=== PATIENT | male | born 2005 | race Caucasian/White ===

== ENCOUNTER → 2023-10-02 11:50 | Outpatient (REF) | payer OTHER, SELFPAY | LOC: HWRAD 11:50 | PROVIDERS: ATTENDING PHYSICIAN Nurse Practitioner | DX: R05.1 Acute cough (principal) | CPT/HCPCS: 71046 ==

== ENCOUNTER 2024-06-22 18:31 | Inpatient (IN) | payer OTHER, SELFPAY ==
[2024-06-22] VITALS (11 sets, daily range): BP systolic 107–130; BP diastolic 74–102; BMI 19.7
--- NOTE | 2024-06-22 11:56 | ED.GENMED ---
History of Present Illness
General
Chief Complaint: Alcohol Problem
Source: patient
Exam Limitations: none
Time Seen by Provider: 06/22/24 11:11
Nursing documentation reviewed up to this point in time: agreed with
History of Present Illness
History of Present Illness:
19 y/o M
says he has been drinking alcohol since high school but definitely heavier in the past year
has been having trouble getting trhough his work day without shakes
usually needs to start drinking around 2 pm
uses vodka and goes through a handle every 2-3 days
lives at home
says his boss sent him home for being 'hung over' yesterday am; spoke with his parents whom they know and clued them in that pt is having issues with alcohol; thus, pt did not drink yesterday as he normally would; he did have some at 11 pm but has
had nausea/vomiting throughout the night, treomrs, sweats, agitation, anxiety, headache
he has never had alcohol withdrawal seizure
no significant abdomianl apin, fever, cp, sob
parents are aware that he drinks but were unaware it was this bad
they are with him but he asked them to step out of the room when he spke with me about how much he has been drinking
Past History
Past History
ED Past Medical History: None
ED Past Surgical History: None
Social History
Tobacco: Vaping
Alcohol: Daily
Drug: Marijuana
Personal: Single
Living: with family
Employment: Employed
Review of Systems
Review of Systems
Allergies reviewed?: Yes
All Other Systems: Not applicable
Phy Exam
Physical Exam
Physical Exam:
GENERAL: Alert , in no apparent distress
EYE: pupils equal and reactive
NECK: Supple
ENT: o/p clr, mmm.
CARDIAC: Regular rate and rhythm .
LUNGS: Clear breath sounds bilaterally, no acute respiratory distress, no wheezes/rales/rhonchi
ABDOMEN: Soft, without focal tenderness, no r/g, no cvat, normal bowel sounds
NEUROLOGICAL: Alert and oriented, no focal neuro deficits
SKIN: Warm and dry, skin intact.
MUSCULOSKELETAL: No edema, well perfused. neg odalys's sign
PSYCH: Normal and appropriate interaction.
Scores
Withdrawal Assessment of Alcohol
Withdrawal Assessment Completed?: Yes
Nausea and Vomiting: Intermittent nausea with dry heaves
Tactile Disturbances: Very mild itching, pins and needles, burning or numbness
Tremor: Severe, even with arms not extended
Auditory Disturbances: Not present
Paroxysmal Sweats: Beads of sweat obvious on forehead
Visual Disturbances: Not present
Anxiety: Moderately anxious, or guarded, so anxiety is inferred
Headache, Fullness in Head: Very mild
Agitation: Moderately fidgety and restless
Orientation and clouding of sensorium: Oriented and can do serial additions
Total CIWA Score: 25
Alcohol Withdrawal Medication Recommendation: Equal to MSAS >11. Lorazepam 2-4mg IV NOW and re-assess q1hr
Course
Orders/Labs/Results
Orders:
Orders
06/22/24 11:57
Lorazepam [Ativan] 1 mg IV NOW STA
06/22/24 11:58
Electrocardiogram (*1) Urgent
Reason for Study: Tachycardia
EKG- Treatment ONCE
0.9% Sodium Chloride 1000 ml [Nss] 1,000 ml IV BOLUS
Thiamine Injection 100 mg IV NOW STA
06/22/24 12:41
FOLic ACID [Folvite] 1 mg 0.9% Sodium Chloride 50 ml [Nss] 50 ml IV NOW
06/22/24 12:47
Alcohol Urgent
Complete Blood Count/With Diff Urgent
Comprehensive Metabolic Panel Urgent
Lipase Urgent
Magnesium Urgent
Comment: ADD ON TO LABS
PTT Urgent
Prothrombin Time Urgent
Venous Blood Gas Urgent
%Oxygen/Room Air: 21
06/22/24 13:30
Add On- LAB Urgent
Tests Added?: magnesium
06/22/24 13:44
US Abdomen Complete/Upper Urgent
Comment:
Reason For Exam: vomiting, alcoholism, elev LFTs
06/22/24 13:45
Magnesium Sulfate 1 G/D5w [Magnesium Sulfate] 1 gm in 100 ml IV NOW
Potassium Chloride Powder [Klor-Con] 20 meq PO NOW STA
06/22/24 13:46
IV Insert/Care/Rem.- Treatment NOW
06/22/24 14:06
Lorazepam [Ativan] 1 mg IV NOW STA
06/22/24 14:10
Potassium Chloride [KCl] 40 meq 0.9% Sodium Chloride 250 ml [Nss] 250 ml IV NOW
06/22/24 15:09
Magnesium Sulfate 1 G/D5w [Magnesium Sulfate] 1 gm in 100 ml IV NOW
Abnormal Lab Results
06/22/24
12:47
RBC 3.68 L 10^6/uL
(4.70-6.10)
Hgb 12.4 L g/dL
(13.0-18.0)
Hct 33.6 L %
(39.0-52.0)
MCH 33.7 H pg
(27.0-31.0)
Absolute Lymphs (auto) 0.3 L 10^3/uL
(1.2-3.4)
Neutrophils % 89.7 H %
(42.2-75.2)
Lymphocytes % 4.1 L %
(20.5-51.1)
APTT 23.1 L Sec
(23.4-35.0)
VBG pH 7.68 H*
(7.32-7.43)
VBG pCO2 28 L mmHg
(35-48)
VBG pO2 140 H mmHg
(30-50)
VBG HCO3 33.0 H mmol/L
(22-27)
Sodium 132 L mmol/L
(135-145)
Potassium 2.9 L mmol/L
(3.5-5.1)
Chloride 87 L mmol/L
(98-107)
Carbon Dioxide 32 H mmol/L
(22-30)
BUN 6 L mg/dl
(9-20)
Creatinine 0.6 L mg/dL
(0.7-1.3)
Glucose 112 H mg/dl
(70-99)
Magnesium 1.0 L mg/dl
(1.6-2.3)
Total Bilirubin 3.0 H mg/dl
(0.2-1.3)
AST 335 H U/L
(17-59)
ALT 94 H U/L
(0-50)
Alkaline Phosphatase 245 H U/L
(38-126)
Total Protein 5.9 L g/dl
(6.3-8.2)
Lipase 1971 H* U/L
(23-300)
06/22/24 12:47
06/22/24 12:47
Vital Signs
Initial and Last Documented VS:
Initial Vital Signs
Temp Pulse Resp BP Pulse Ox
36.6 C 120 20 120/79 98
06/22/24 11:01 06/22/24 11:01 06/22/24 11:01 06/22/24 11:01 06/22/24 11:01
Last Documented Vital Signs
Temp Pulse Resp BP Pulse Ox
36.6 C 92 20 116/87 97
06/22/24 11:01 06/22/24 16:32 06/22/24 16:32 06/22/24 16:32 06/22/24 16:32
MDM/Problems Addressed
Differential Diagnosis Includes:
pancreatitis, alcohol withdrawwal
MDM/Problems Addressed:
vikram doyle
19 y/o M with alcohol abuse
drinking more than what family thought
needing to drink earlier in the day to curb withdrawal symptoms; has never been seen for alcohol abuse/withdrawal before
tried to avoid alochol last night after parents found out how much he was drinking; started vomiting, vomited all night, very shaky
pancreatitis, elevated LFTs (t bili 3), hypokalemia with ekg changes;
tachycardia resolved with ativan;
no h/o seizure
us neg for GB disease;
iv potassium, magnesium ordered
ivf, npo or clears
*Critical Care Note
Total Time (30-74mins, 75-104mins- exclusive of procedures): Not Applicable
ED Attending Note
-
Portions of this chart may have been created with voice recognition software.� Occasional wrong word or��sound alike� substitutions may have occurred due to the inherent limitations of voice recognition software.
Discharge Plan
Departure
Patient Disposition: Admit
Date of Disposition: 06/22/24
Time of Disposition: 15:04
Admit to: IMU
Presentation/result/management discussed w/ accepting MD/DO: Hospitalist
Condition: Fair
Covid-19: Not Applicable
Discharge Problem:
Hypokalemia, Pancreatitis, Alcohol withdrawal
Prescriptions:
No Action
ondansetron HCl [Zofran] 4 mg Tablet
4 mg PO Q8HPRN PRN (Reason: nausea)
pantoprazole [Protonix] 40 mg Tablet,Delayed Release (Dr/Ec)
40 mg PO DAILY
Referrals:
Elvira Ramírez DO [Family Provider] -
Interventions
Interventions:
*General Assessment Last Done: 06/22/24 11:01
ED- Neurological Assessment Last Done: 06/22/24 11:30
ED-Psychological Assessment Last Done: 06/22/24 11:30
Discharge Date and Time
Print Language: NEPALI
[2024-06-22] MEDS: NSS 1000 IV (12:59)
[2024-06-22] MEDS: THIAMINE INJECTION 100 MG IV (13:00)
[2024-06-22] MEDS: ATIVAN 1 MG IV ×2 (13:00→14:48)
[2024-06-22] MEDS: FOLVITE 50.2 MG IV (13:10)
[2024-06-22 13:21] LABS: Venous Blood Gas B.E. 12.7 mmol/L (-4 to +4); Venous Blood Gas pCO2 28 mmHg (35-48); Venous Blood Gas pO2 140 mmHg (30-50)
[2024-06-22 13:27] LABS: Venous Blood Gas pH 7.68 (7.32-7.43)
[2024-06-22 13:36] LABS: APTT 23.1 Sec (23.4-35.0); PT 13.5 Sec (11.4-14.6)
[2024-06-22 13:37] LABS: AST (SGOT) 335 U/L (17-59); Albumin 3.5 g/dl (3.5-5.0); Alcohol None Detected; Alkaline Phosphatase 245 U/L (38-126); Blood Urea Nitrogen 6 mg/dl (9-20); Calcium 8.8 mg/dl (8.4-10.2); Carbon Dioxide 32 mmol/L (22-30); Chloride 87 mmol/L (98-107); Estimated Creatinine Clearance > 125 ml/min; Glucose 112 mg/dl (70-99); Lipase 1971 U/L (23-300); Potassium 2.9 mmol/L (3.5-5.1); Sodium 132 mmol/L (135-145); Total Protein 5.9 g/dl (6.3-8.2); eGFR > 60.00
[2024-06-22 14:23] LABS: % Basophils 0.5 % (0-2); % Immature Granulocytes 0.5 % (0-0.5); % Lymphocytes 4.1 % (20.5-51.1); % Monocytes 5.2 % (1.7-9.3); % Neutrophils 89.7 % (42.2-75.2); Absolute Lymphocytes 0.3 10^3/uL (1.2-3.4); Absolute Monocytes 0.4 10^3/uL (0.1-0.6); Absolute Neutrophils 6.5 10^3/uL (1.4-6.5); Hematocrit 33.6 % (39.0-52.0); Hemoglobin 12.4 g/dL (13.0-18.0); Mean Corp Hgb Conc. 36.9 g/dL (33.0-37.0); Mean Corpuscular Hgb 33.7 pg (27.0-31.0); Mean Corpuscular Volume 91.3 fL (80.0-94.0); Mean Platelet Volume 8.5 fL (7.4-10.4); Nucleated Red Blood Cells % 0 % (-); Platelet Count 226 10^3/uL (130-400); Red Blood Cell Count 3.68 10^6/uL (4.70-6.10); Red Cell Dist. Width 14.1 % (11.5-14.5); White Blood Cell Count 7.3 10^3/uL (4.8-10.8)
[2024-06-22] MEDS: KLOR-CON 20 MEQ PO (14:47)
[2024-06-22] MEDS: KCL 270 MEQ IV (14:51)
[2024-06-22] MEDS: MAGNESIUM SULFATE 100 IV ×2 (14:51→16:31)
[2024-06-22 15:05] LABS: ALT (SGPT) 94 U/L (0-50)
--- NOTE | 2024-06-22 15:17 | HPS.HSE ---
Family Physician
-
Family Physician: Elvira Ramírez
Chief Complaint
-
Nausea/vomiting
History of Present Illness
19M hx depression (reportedly briefly on Lamictal as per patient's mother at bedside, denied hx bipolar) hx heavy ETOH use, vaping, marijuana p/w headache, nausea, vomiting, tremors likely alcohol withdrawal. Daily drinking, hard liquor/vodka.
Never needed treatment for ETOH withdrawal before. Patient's mother also notes patient has been increasingly depressed for the last few weeks. Progressively less functional, poor hygiene. Patient endorses daily drinking to forget his problems.
Denies history suicidal/homicidal ideation. Symptoms significantly improved following Ativan given in ED. Patient able to tolerate oral diet. Tremors remain present on outstretched hands. Labs concerning for ETOH pancreatitis transaminitis
liver injury. Metabolic Alkalosis likely d/t frequent vomiting. Hypokalemia and hypomagnesemia also likely due to vomiting. Abd US concerning for early signs cirrhosis. MELD score 11.
Medical History
Past Medical History
Past Medical History: Reports Other (as above)
Past Surgical History: Reports Other (as above)
Social History
Tobacco: Vaping
Alcohol: Daily
Drug: Marijuana
Personal: Single
Living: With Family
Employment: Employed
Family History
Family History: Not pertinent (reviewed)
Allergies / Home Medications
Allergies reflects when Allergies were last updated in [facility].
Home Medications with original date entered in [facility]
Allergy/Medication List:
Allergies
Allergy/AdvReac Type Severity Reaction Status Date / Time
No Known Allergies Allergy Verified 06/22/24 11:01
Home Medications
ondansetron HCl 4 mg tablet 4 mg PO Q8HPRN PRN nausea 06/22/24
pantoprazole 40 mg tablet,delayed release (Protonix) 40 mg PO DAILY 06/22/24
Review of Systems
-
A 12 point ROS was completed and negative except as noted: Yes
Constitutional: Reports Other (as below)
Physical Exam
Vital Signs
Vital Signs
Temp Pulse Resp BP Pulse Ox
97.9 F 97 16 123/77 96
06/22/24 11:01 06/22/24 15:00 06/22/24 15:00 06/22/24 15:00 06/22/24 15:00
Physical Exam
General: Other (as below)
Laboratory Results
-
06/22/24 12:47
06/22/24 12:47
Laboratory Results
PT 13.5 Sec (11.4-14.6) 06/22/24 12:47
INR 1.00 06/22/24 12:47
APTT 23.1 Sec (23.4-35.0) L 06/22/24 12:47
Total Bilirubin 3.0 mg/dl (0.2-1.3) H 06/22/24 12:47
AST 335 U/L (17-59) H 06/22/24 12:47
ALT 94 U/L (0-50) H 06/22/24 12:47
Alkaline Phosphatase 245 U/L (38-126) H 06/22/24 12:47
Lipase 1971 U/L (23-300) H* 06/22/24 12:47
Impression/Plan
-
ROS
General: Denies fever chills night sweats unexpected weight loss
Neuro: Reports headache shaking/tremors Denies loss of consciousness dizziness vertigo
Psych: denies depression hallucinations confusion manic episodes
Endocrine: Denies polyuria polydipsia polyphagia heat/cold intolerance
HEENT: Denies blindness visual disturbances epistaxis
Pulmonary: denies coughing hemoptysis sneezing sob dyspnea on exertion
Cardiovascular: denies chest pain palpitations leg swelling
Hematology: denies signs symptoms of anemia easy bruising/bleeding
Gastrointestinal: reports nausea, vomiting, alternating constipation diarrhea
Genito-Urinary: denies retention incontinence dysuria
Musculoskeletal: denies joint pain weakness
Dermatology: denies rash laceration bruising
Physical Exam
General: No pallor, cyanosis, or jaundice.
HEENT: Throat clear. PERRLA Normocephalic atraumatic
NECK: Supple. No JVD Carotid Bruits
RESPIRATORY: Lungs clear to auscultation. No crackles wheezes stridor
CVS: S1, S2 sinus tachy. No murmur, rub or gallop.
ABDOMEN: Soft, non-tender. Distended. BS+.
EXTREMITIES: No peripheral cyanosis or edema.
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
Psych: endorses depression, denies SI/HI
IMPRESSION:
19M hx depression (reportedly briefly on Lamictal as per patient's mother at bedside, denied hx bipolar) hx heavy ETOH use, vaping, marijuana p/w headache, nausea, vomiting, tremors likely alcohol withdrawal. Daily drinking, hard liquor/vodka.
Never needed treatment for ETOH withdrawal before. Patient's mother also notes patient has been increasingly depressed for the last few weeks. Progressively less functional, poor hygiene. Patient endorses daily drinking to forget his problems.
Denies history suicidal/homicidal ideation. Symptoms significantly improved following Ativan given in ED. Patient able to tolerate oral diet. Tremors remain present on outstretched hands. Labs concerning for ETOH pancreatitis transaminitis
liver injury. Metabolic Alkalosis likely d/t frequent vomiting. Hypokalemia and hypomagnesemia also likely due to vomiting. Abd US concerning for early signs cirrhosis. MELD score 11.
PLAN:
#ETOH withdrawal
#Likely ETOH induced Pancreatitis and Liver Injury
#US concerning for early signs Cirrhosis
Tele admit
thiamine Folate supplementation
Symptoms already improved, no need for phenobarb taper at this time
ativan prn per MSAS protocol
seizure precautions
Low residue diet for now given patient already tolerating diet
IVF support
trend Lipase
monitor LFTs
GI eval
ETOH cessation counseled
#Metabolic Alkalosis
likely d/t excess vomiting
follow up repeat VBG in AM
#Depression
reportedly briefly on Lamictal in past for Depression
patient and patient's mother Bushra deny hx Bipolar disorder
Denies SI/HI
Psych eval
#Hypokalemia
#Hypomagnesemia
#QT prolongation likely 2/2 electrolyte abn's as above
monitor and replete as necessary
follow up repeat EKG in AM
avoid QT prolonging agents, Ativan prn nausea (hold if administering Ativan as per MSAS protocol)
#Hx Vaping
Tobacco cessation counseled
Nicotine Supplementation
DVT ppx SCD
GI ppx protonix
Full Code
Discussed with patient and patient's mother Bushra at bedside
I spent a total of 80 minutes with the patient or on the floor. More than 50% of this time involved counseling and coordination of care.
[2024-06-23] VITALS (7 sets, daily range): BP systolic 119–139; BP diastolic 83–104; BMI 19.6; BMI 18.7
[2024-06-23] MEDS: LR 1000 IV ×3 (01:42→23:17)
[2024-06-23] MEDS: THIAMINE INJECTION 200 MG IV ×3 (01:44→20:16)
[2024-06-23] MEDS: NICODERM TRANSDERMAL TRANSDERM (01:48)
[2024-06-23] MEDS: ATIVAN 1 MG PO ×5 (05:22→21:40)
[2024-06-23 06:11] LABS: Amphetamines Negative (Negative); Barbiturates Negative (Negative); Benzodiazepines Positive (Negative); Buprenorphine Negative (Negative); Cocaine Negative (Negative); Marijuana Positive (Negative); Methadone Negative (Negative); Methamphetamines Negative (Negative); Opiates Negative (Negative); Phencyclidine Negative (Negative); Tricyclic Antidepressants Negative (Negative)
[2024-06-23 06:20] LABS: Fentanyl, Urine Negative (Negative)
[2024-06-23 06:58] LABS: Venous Blood Gas B.E. 8.2 mmol/L (-4 to +4); Venous Blood Gas HCO3 33.9 mmol/L (22-27); Venous Blood Gas O2 Sat % 94.2 %; Venous Blood Gas pCO2 51 mmHg (35-48); Venous Blood Gas pH 7.43 (7.32-7.43); Venous Blood Gas pO2 64 mmHg (30-50)
[2024-06-23 07:00] LABS: Hemoglobin 11.5 g/dL (13.0-18.0); Mean Corp Hgb Conc. 37.1 g/dL (33.0-37.0); Mean Corpuscular Hgb 34.6 pg (27.0-31.0); Mean Corpuscular Volume 93.4 fL (80.0-94.0); Mean Platelet Volume 8.9 fL (7.4-10.4); Platelet Count 185 10^3/uL (130-400); Red Blood Cell Count 3.32 10^6/uL (4.70-6.10); Red Cell Dist. Width 13.6 % (11.5-14.5); White Blood Cell Count 3.4 10^3/uL (4.8-10.8)
[2024-06-23 07:50] LABS: ALT (SGPT) 81 U/L (0-50); AST (SGOT) 245 U/L (17-59); Albumin 2.9 g/dl (3.5-5.0); Alkaline Phosphatase 198 U/L (38-126); Blood Urea Nitrogen 4 mg/dl (9-20); Calcium 8.5 mg/dl (8.4-10.2); Carbon Dioxide 33 mmol/L (22-30); Chloride 94 mmol/L (98-107); Estimated Creatinine Clearance > 125 ml/min; Glucose 78 mg/dl (70-99); Lipase 1548 U/L (23-300); Magnesium 1.7 mg/dl (1.6-2.3); Phosphorus 2.6 mg/dl (2.5-4.5); Sodium 132 mmol/L (135-145); Total Bilirubin 2.9 mg/dl (0.2-1.3); Total Protein 5.2 g/dl (6.3-8.2); eGFR > 60.00
--- NOTE | 2024-06-23 08:11 | W.PN.HOSP.TC ---
Today's Communication/Plan
-
see a/p
Assessment / Plan
Assessment / Plan
Physical Exam
General: No pallor, cyanosis, or jaundice.
HEENT: Throat clear. PERRLA Normocephalic atraumatic
NECK: Supple. No JVD Carotid Bruits
RESPIRATORY: Lungs clear to auscultation. No crackles wheezes stridor
CVS: S1, S2 sinus tachy. No murmur, rub or gallop.
ABDOMEN: Soft, non-tender. Distended. BS+.
EXTREMITIES: No peripheral cyanosis or edema.
LIBRARY SERIALS ASSISTANT: AOx3 conversant coherent, tremors noted on outstretched hands
Psych: calm cooperative, endorses depression, denies SI/HI
IMPRESSION:
19M hx depression (reportedly briefly on Lamictal as per patient's mother at bedside, denied hx bipolar) hx heavy ETOH use, vaping, marijuana p/w headache, nausea, vomiting, tremors likely alcohol withdrawal. Daily drinking, hard liquor/vodka.
Never needed treatment for ETOH withdrawal before. Patient's mother also notes patient has been increasingly depressed for the last few weeks. Progressively less functional, poor hygiene. Patient endorses daily drinking to forget his problems.
Denies history suicidal/homicidal ideation. Symptoms significantly improved following Ativan given in ED. Patient able to tolerate oral diet. Tremors remain present on outstretched hands. Labs concerning for ETOH pancreatitis transaminitis
liver injury. Metabolic Alkalosis likely d/t frequent vomiting. Hypokalemia and hypomagnesemia also likely due to vomiting. Abd US concerning for early signs cirrhosis. MELD score 11.
PLAN:
#ETOH withdrawal
#Likely ETOH induced Pancreatitis and Liver Injury
#US concerning for early signs Cirrhosis
Tele admit
thiamine Folate supplementation
Symptoms already improved, no need for phenobarb taper at this time
ativan prn per MSAS protocol
Low residue diet for now given patient already tolerating diet
IVF support
trend Lipase
monitor LFTs
GI eval appreciated
ETOH cessation counseled
#Metabolic Alkalosis
likely d/t excess vomiting
follow up repeat VBG in AM noted significant improvement in pH
#Depression
reportedly briefly on Lamictal in past for Depression
patient and patient's mother Bushra deny hx Bipolar disorder
Denies SI/HI
Psych eval appreciated
#Hypokalemia
#Hypomagnesemia
#QT prolongation likely 2/2 electrolyte abn's as above since improved
monitor and replete electrolytes as necessary
minimize QT prolonging agent use as possible
#Hx Vaping
Tobacco cessation counseled
Nicotine Supplementation
DVT ppx SCD
GI ppx protonix
Full Code
Discussed with patient and patient's mother Bushra at bedside
I spent a total of 50 minutes with the patient or on the floor. More than 50% of this time involved counseling and coordination of care.
Anticipated Discharge: 24 - 48 hours
Subjective/Interval History
-
Date of Service: June 23, 2024
Seen and examined at bedside in no acute distress resting comfortably in bed. Overall reports feeling well. Tolerating diet. Tremors outstretched hands remain present.
Objective Data
-
Labs:
Laboratory Results
06/23/24
06:36
WBC 3.4 L
Hgb 11.5 L
Hct 31.0 L
Plt Count 185
Sodium 132 L
Potassium 3.0 L
Chloride 94 L
Carbon Dioxide 33 H
BUN 4 L
Creatinine 0.6 L
Glucose 78
Calcium 8.5
Total Bilirubin 2.9 H
AST 245 H
ALT 81 H
Alkaline Phosphatase 198 H
Vital Signs:
Vital Signs
Temp Pulse Resp BP Pulse Ox
98.7 F 83 15 136/89 98
06/23/24 02:54 06/23/24 02:54 06/23/24 02:54 06/23/24 04:00 06/23/24 02:54
I&O
06/22/24 06/23/24 06/24/24
06:59 06:59 06:59
Intake Total 700 / 700
Balance 700 / 700
[2024-06-23] MEDS: NICODERM TRANSDERMAL 21 MG TRANSDERM (08:48)
[2024-06-23] MEDS: PROTONIX 40 MG PO (08:48)
[2024-06-23] MEDS: FOLVITE 1 MG PO (08:48)
--- NOTE | 2024-06-23 11:41 | CM ---
Addendum entered by Fadumo Prabhakar 06/24/24 08:22:
[facility]
Phone #: [phone]
Fax #: [phone]
Original Note:
Patient seen at bedside
IA completed
Psych consulted
CM consult completed-substance abuse/dispo planning
Patient lives with his parents in a multi story home
Independent, denies DME, Denies VN/Rehab
[facility] information given to patient
Marivel from [facility] states she met the patient/parents yesterday
Receptive to inpatient - Marivel states patient set up with [facility] in [place], [place]
PCP: Elivra Ramírez
Pharmacy: [facility]
PLAN: [facility] when stable, [facility] is following
[2024-06-23] MEDS: MAGNESIUM SULFATE 50 IV (12:26)
[2024-06-23] MEDS: KCL 40 MEQ PO (12:26)
--- NOTE | 2024-06-23 12:44 | CS.PSYCHR ---
Consult Summary - Psychiatry
-
Pt is 19 yo male with hx of depression, admitted 06/22 for alcohol withdrawal symptoms, pancreatitis and liver injury, drinking vodka daily. BAL negative on admission, UDS +MJ. Pt seen with father present. Pt states he has had some depression,
feeling like his life is not progressing, since he dropped out of college, is working the same job he's had for several years. He states he feels concerned about his future. He c/o decreased energy; per father pt has chronic/life-long issues with
sleep and a very restricted diet. Pt alert, sitting up eating scrambled eggs, answering questions. Pt slightly tremulous; no agitation or signs of psychosis.
Psych Hx: saw a psychiatrist for depression about 1 year ago, had a therapist for a few years during the pandemic. C/o not liking Wellbutrin, felt like a 'zombie'; was on Lamictal- did not feel any benefit
Denies hx of inpatient tx
SH: single, living with parents, employed.
Subst Use: MJ, vapes, daily alcohol
MSE: alert, calm, cooperative. Speech coherent, thought clear. Mood dysphoric, outlook negative. Denies SI. No signs of psychosis. Insight limited to fair
Imp: Alcohol Use d/o, severe. Cannabis Use
Unspecified depression
Rec: continue current management. Consider antidepressant when more stable/out of the high- risk period for alcohol withdrawal sx
Encourage alcohol rehab. Outpatient therapy and med mgt when medically cleared/upon return home
Will follow
--- NOTE | 2024-06-23 13:30 | CON.GI ---
Addendum entered and electronically signed by Ashley Contreras MD 06/23/24 17:17:
I saw and examined the patient.
The MANAGER IMAGE or PA's note was reviewed and I agree with the note.
Comment:
This patient is a 19-year-old man with a history of alcohol abuse since eighth grade. He was admitted with shakiness, nausea and vomiting. His symptoms have improved. Labs and imaging done on admission show possible early cirrhosis, elevated
lipase and elevated AST and bilirubin. In the room he does not have abdominal pain and is eating a soft pretzel. He does not have any abdominal pain now.
abd: soft, nontender
oriented
impression
alcohol abuse
? early cirrhosis
abnl liver tests
plan:
alcohol abstinence
follow lfts,INR
w/u for underlying liver disease (in case it isn't all alcohol)
monitor for withdrawal
d/w mother at bedside as well
Original Note:
Consultation
-
Date/Time Consultation Requested: 06/22/24 1850-
Date/Time Consultation Performed: 06/23/24 1330
Requesting Provider: Jose Alfredo escamilla MD
Performing Provider: JOSSELINE Stringer, Ashley Contreras MD
Reason for Consultation: ETOH abuse, increased LFT's, lipase, US concern for cirrhosis
Medical History
Chief Complaint / HPI
Chief Complaint: shakiness, abdominal pain,nausea, vomiting
History of Present Illness:
Pt is a 19yo with hx anxiety/depression and ETOH abuse. He admits to ETOH use since 8th grade. In review with amount of ETOH consumed increased over time to admitted drinking 1 handle of vodka every other day prior to admission. He admits to
drinking early in day to avoid withdrawal symptoms. On admission he is noted with He denies hx liver issues in past. There is some family with hx ETOH issue but denies any family member with cirrhosis or liver transplant in past. Na 132, K 2.9,
bili 3, AST 335, ALT 94, alk pos 245 and lipase 1971. Platelets 226, albumin 3.5 and INR 1. US completed with liver normal size mild diffuse heterogeneous hepatic echotexture, suspicious for early change of cirrhosis. No suspicious focal hepatic
lesions identified. No definitive nodularity of the hepatic capsular contour.
In review with patient he complaints of continued shakiness. He also has + GERD on Protonix , + nausea/vomiting last week. He did have some abdominal pain last week that has improved. He denies diarrhea, constipation, hematemesis, or rectal
bleeding. No hx EGD or colonoscopy in past. No hx hepatitis, tattoos, or IVDA. No supplement use.
Past Medical History
Past Medical History: Psychiatric (anxiety/depression) and Other (ETOH abuse, brown-schlatter disease )
Past Surgical History: Orthopedic (knee surgery )
Social History
Tobacco: Vaping
Alcohol: Daily (1 handle every other day)
Drug: None
Living: With Family
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
Family History
Family History: Other (no family hx liver issues )
Allergies / Home Medications
Allergy/AdvReac Type Severity Reaction Status Date / Time
No Known Allergies Allergy Verified 06/22/24 11:01
�Medication �Instructions �Recorded
ondansetron HCl 4 mg tablet 4 mg PO Q8HPRN PRN nausea 06/22/24
pantoprazole 40 mg tablet,delayed 40 mg PO DAILY Gastrointestinal 06/22/24
release (Protonix) Issue
Review of Systems
-
History Source: Patient and Family
Constitutional: Reports No Symptoms
EENT: Reports No Symptoms
Respiratory: Reports No Symptoms
Cardiac: Reports No Symptoms
Abdomen/GI: Reports Abdominal Pain (last week ), Nausea, Vomiting and Other (decreased appetite )
: Reports No Symptoms
Musculoskeletal: Reports No Symptoms
Skin: Reports No Symptoms
Neurological: Reports Weakness
Endocrine: Reports No Symptoms
Hematologic/Lymphatic: Reports No Symptoms
Vital Signs
Temp Pulse Resp BP Pulse Ox
98.5 F 93 18 130/94 95
06/23/24 11:24 06/23/24 11:24 06/23/24 11:24 06/23/24 11:24 06/23/24 11:24
Physical Exam
Exam
General: Well Developed, Well Nourished and No Apparent Distress
HEENT: Normocephalic and Anicteric
Respiratory: Clear
Cardiac: Regular Rhythm
GI: Soft, Non Tender and Distended (mild )
Musculoskeletal: No Clubbing and No Cyanosis
Skin: Warm and Dry
Neuro: Awake, Alert and AO x 3
Psych: Calm
Results
WBC 3.4 10^3/uL (4.8-10.8) L 06/23/24 06:36
Hgb 11.5 g/dL (13.0-18.0) L 06/23/24 06:36
Hct 31.0 % (39.0-52.0) L 06/23/24 06:36
MCV 93.4 fL (80.0-94.0) 06/23/24 06:36
Plt Count 185 10^3/uL (130-400) 06/23/24 06:36
Absolute Neuts (auto) 6.5 10^3/uL (1.4-6.5) 06/22/24 12:47
PT 13.5 Sec (11.4-14.6) 06/22/24 12:47
INR 1.00 06/22/24 12:47
APTT 23.1 Sec (23.4-35.0) L 06/22/24 12:47
Sodium 132 mmol/L (135-145) L 06/23/24 06:36
Potassium 3.0 mmol/L (3.5-5.1) L 06/23/24 06:36
Chloride 94 mmol/L (98-107) L 06/23/24 06:36
Carbon Dioxide 33 mmol/L (22-30) H 06/23/24 06:36
BUN 4 mg/dl (9-20) L 06/23/24 06:36
Creatinine 0.6 mg/dL (0.7-1.3) L 06/23/24 06:36
Calcium 8.5 mg/dl (8.4-10.2) 06/23/24 06:36
Total Bilirubin 2.9 mg/dl (0.2-1.3) H 06/23/24 06:36
AST 245 U/L (17-59) H 06/23/24 06:36
ALT 81 U/L (0-50) H 06/23/24 06:36
Alkaline Phosphatase 198 U/L (38-126) H 06/23/24 06:36
Lipase 1548 U/L (23-300) H* 06/23/24 06:36
Diagnostic Image Results:
06/23 US abdomen
1. Diffuse mildly heterogeneous hepatic echotexture, suspicious for early change of cirrhosis. No suspicious focal hepatic lesions identified. No definitive nodularity of the hepatic capsular contour.
2. No acute intra-abdominal process identified sonographically
Prior GI Procedures:
EGD: none
Colonoscopy: none
Assessment / Plan
-
Pt is a 19yo with hx anxiety/depression and ETOH abuse. He admits to ETOH use since 8th grade. In review with amount of ETOH consumed increased over time to admitted drinking 1 handle of vodka every other day prior to admission. He admits to
drinking early in day to avoid withdrawal symptoms. On admission he is noted with He denies hx liver issues in past. There is some family with hx ETOH issue but denies any family member with cirrhosis or liver transplant in past. Na 132, K 2.9,
bili 3, AST 335, ALT 94, alk pos 245 and lipase 1971. Platelets 226, albumin 3.5 and INR 1. US completed with liver normal size mild diffuse heterogeneous hepatic echotexture, suspicious for early change of cirrhosis. No suspicious focal
hepatic lesions identified. No definitive nodularity of the hepatic capsular contour.
-ETOH abuse with withdrawal
-US with concern for early cirrhosis
-elevated LFT's
-elevated lipase
-hyponatremia
-hypokalemia
-GERD with PPI use
other med problems:
anxiety/depression
-brown-Schlatter disease
PLAN:
etiology of symptoms with concern for ETOH abuse and withdrawal with concern for early cirrhosis
pt with some abdominal pain/nausea/vomiting last week concern for ETOH hepatitis/pancreatis
will add hepatitis, NIGEL, AMA, iron studies, A1AT, ceruloplasmin to exclude any other etiology for US finding
lab trend improved
DF low 5.3 no role for steroids
if symptoms not improving consider CT to further eval pancreas as not well visualized on US
STRESSED complete ETOH abstinence, avoid liver toxic medication and supplement
good nutrition and add supplement daily
monitor for withdrawal- cont rx per medical team
long discussion with patient and family concern for possible cirrhosis at young age all questions answered
cont PPI
cont thiamine and folate
correct electrolytes per medical team
OP follow up 3-4 weeks after discharge to ensure improved
-
-
Thank you for consultation and allowing me to participate in the patient's care. Please call the business continuity strategy director GI physician during the after hours with any questions or concerns.
[2024-06-23 14:59] LABS: Urine Albumin Negative (Neg - Trace); Urine Bilirubin Negative (Negative); Urine Character Clear (Clear); Urine Color Yellow; Urine Glucose Negative (Negative); Urine Ketone Negative (Negative); Urine Leukocyte Negative (Negative); Urine Nitrite Negative (Negative); Urine Occult Blood Negative (Negative); Urine Urobilinogen Negative (Neg - 1+)
[2024-06-23] MEDS: ATIVAN 1 MG IV ×2 (20:17→23:17)
--- NOTE | 2024-06-23 22:00 | PTCARENOTE ---
Patient becoming increasingly restless, tremulous, agitated, and slightly confused as to place and time. MSAS score continues to increase. Patient now c/o 'hearing people talking about him' and attempting to remove his IV, stating that 'there is
metal stuck in his arm.' Provider notified. Pt. to be transferred to IMU per order. Report called to Tonio JEAN and patient to be moved to room 3341.
--- NOTE | 2024-06-23 23:00 | PTCARENOTE ---
Received pt from the [facility] to rm [id number]. Pt restless, disoriented to time, tremulous, afebrile but able to be redirected. HR initially 80s. MSAS score initially 9.
[2024-06-23] MEDS: PHENOBARBITAL 104 MG IV (23:22)
[2024-06-24] VITALS (31 sets, daily range): BP systolic 106–151; BP diastolic 89–115; PULSE 48–64; BMI 18.8
[2024-06-24] MEDS: ATIVAN 2 MG IV ×4 (00:03→01:24)
--- NOTE | 2024-06-24 00:29 | W.PN.UPDATE ---
Update Note
Progress Note Update
Patient received as a transfer from [facility] due to increased withdrawal symptoms. Ativan given as per protocol. Phenobarbital taper ordered. Patient w/increasing withdrawal symptoms, Patient is still trying to get OOB, hallucinating, trying to bite
tele leads, IV lines. Ordered and placed in 4 point soft limb restraints and face mask. Given additional dose of Ativan 2 mg IV, with no reduction of symptoms. Discussed with ICU SPICE GRINDER, will transfer to ICU and start Dexmedetomidine gtt to help
w/withdrawal symptoms.
--- NOTE | 2024-06-24 00:33 | PTCARENOTE ---
Pt more restless, hallucinating, trying to get oob, pulling at leads and IV. HR 150s-160s. MSAS 12. Restraints placed on pt. Phenobarb bolus ordered and completed. IV ativan given x 2 with little effect. 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
bedside. Pt transferred to ICU.
[2024-06-24] MEDS: VERSED 5 MG IV ×2 (00:36→00:54)
[2024-06-24] MEDS: PRECEDEX 100 IV ×2 (00:36→08:05)
[2024-06-24] MEDS: NSS (PRESERVATIVE FREE) 10 ML IV (00:48)
--- NOTE | 2024-06-24 01:00 | PTCARENOTE ---
rec`d pt from IMU extremely restless, several prns given. 4 point restraints. pt incontinent of urine. safe environment maintained. call heath in reach.
[2024-06-24] MEDS: NSS (PRESERVATIVE FREE) 1 ML IV (01:26)
[2024-06-24] MEDS: VALIUM INJECTION 10 MG IV (01:43)
--- NOTE | 2024-06-24 02:21 | W.PN.UPDATE ---
Update Note
Progress Note Update
RN reported patient MSAS 8, 7. RN reports he is restless and starting to act confused, picking at his IV, thinking there's 'something inside his body.' Patient seen and evaluated. resting in bed at present, but noted to be mild to moderate tremulus,
picking on IV site, trying to pull it out stating ' someone placed metal in there'. When RN tried to correct him, became little agitated using fowl language, and became defensive. Reoriented.
Half an hour later, RN reported MSAS 13, is having auditory hallucinations, paranoid, thinks people are talking about him....and that we are 'putting more metal in his arm' will transfer patient to IMU.
[2024-06-24 03:51] LABS: Hematocrit 30.6 % (39.0-52.0); Mean Corp Hgb Conc. 35.9 g/dL (33.0-37.0); Mean Corpuscular Hgb 33.5 pg (27.0-31.0); Mean Corpuscular Volume 93.3 fL (80.0-94.0); Platelet Count 159 10^3/uL (130-400); Red Blood Cell Count 3.28 10^6/uL (4.70-6.10); Red Cell Dist. Width 13.4 % (11.5-14.5); White Blood Cell Count 3.6 10^3/uL (4.8-10.8)
[2024-06-24 04:18] LABS: ALT (SGPT) 79 U/L (0-50); AST (SGOT) 161 U/L (17-59); Albumin 2.9 g/dl (3.5-5.0); Alkaline Phosphatase 184 U/L (38-126); Blood Urea Nitrogen 3 mg/dl (9-20); Calcium 8.5 mg/dl (8.4-10.2); Carbon Dioxide 28 mmol/L (22-30); Chloride 103 mmol/L (98-107); Estimated Creatinine Clearance > 125 ml/min; Glucose 102 mg/dl (70-99); Iron 91 ug/dl (49-181); Lipase 994 U/L (23-300); Potassium 2.9 mmol/L (3.5-5.1); Sodium 137 mmol/L (135-145); Total Bilirubin 2.2 mg/dl (0.2-1.3); Total Protein 5.2 g/dl (6.3-8.2); eGFR > 60.00
[2024-06-24 04:27] LABS: Percent Saturation 54 % (20-50); Total Iron Binding Capacity 166 ug/dl (261-462)
[2024-06-24] MEDS: KCL 270 MEQ IV (04:55)
[2024-06-24] MEDS: LR 1000 IV ×3 (05:09→19:49)
--- NOTE | 2024-06-24 07:21 | CON.INTV ---
Consultation
Consultation Request
Date/Time Consultation Requested: 06/24/24-7 a.m.
Date/Time Consultation Performed: 06/24/24-7:30 AM
Requesting Provider: hospitalist
Performing Provider: Dr. Caban
Reason for Consultation: alcohol withdrawal/critical care management
Medical History
-
Chief Complaint: delirium/alcohol withdrawal
History of Present Illness:
19-year-old vaping male with alcohol use disorder and marijuana use presented with headache, nausea, vomiting, tremors and alcohol withdrawal-river pilot consulted for Precedex, alcohol withdrawal, critical care management 06/24/24. She continues
to be quite confused. He is delusional as well. He has mild tremors and mild tachycardia. He offers no complaints of chest pain, shortness of breath, abdominal pain, nausea, emesis at this time
Past Medical History
Past Medical History: None (Alcohol use disorder. Marijuana use. Vapping. Depression.)
Social History
Tobacco: Vaping
Alcohol: Daily ( A handle of vodka every other day)
Drug: Marijuana
Personal: Single
Living: With Family
Occupational Exposures: no known asbestos exposure
Environmental Exposures: no known tuberculosis exposure
Family History
Family History: Other ( depression)
Allergies / Home Medications
Allergies
Allergy/AdvReac Type Severity Reaction Status Date / Time
No Known Allergies Allergy Verified 06/22/24 11:01
Home Medications
�Medication �Instructions �Recorded �Confirmed �Last Taken �Type
ondansetron HCl 4 mg tablet 4 mg PO Q8HPRN PRN nausea 06/22/24 06/22/24 Unknown History
pantoprazole 40 mg tablet,delayed 40 mg PO DAILY Gastrointestinal 06/22/24 06/22/24 Unknown History
release (Protonix) Issue
Review of Systems
-
Unable to Obtain full review of systems at this time due to: Other ( per HPI)
Vitals / Labs / Diagnostic Testing
Vital Signs
Temp Pulse Resp BP Pulse Ox
98.4 F 60 18 137/98 99
06/24/24 03:00 06/24/24 06:15 06/24/24 06:15 06/24/24 06:00 06/24/24 06:15
Lab Data
06/24/24 03:27
06/24/24 03:27
Diagnostic Testing:
Physical Exam
-
Exam:
well-nourished and well-developed in no apparent distress
HEENT-atraumatic, normocephalic
Neck-supple, no JVD, no bruit
Heart-regular rate and rhythm-no murmurs, rubs or gallops
Chest-clear to auscultation, no wheezes, crackles
Back-no tenderness
Abdomen-soft, nontender, nondistended, no hepatosplenomegaly
Extremities-no cyanosis, clubbing, edema and good peripheral pulses
Integument-intact, no rashes, lesions or ecchymosis
Neurology-alert and oriented, nonfocal motor and sensory exam
Assessment
-
19-year-old vaping male with alcohol use disorder and marijuana use presented with headache, nausea, vomiting, tremors and alcohol withdrawal-river pilot consulted for Precedex, alcohol withdrawal, critical care management 06/24/24.
Alcohol use disorder with alcohol withdrawal
Elevated liver functions
Pancreatitis-elevated lipase
Metabolic alkalosis
Hypokalemia
Hypomagnesemia
Leukopenia
Fxqhem-dupvsgauis-vhsflrlemr 11.0
Conditions present prior to admission:
Alcohol use disorder.
Marijuana use.
Vapping.
Depression.
Plan
Patient will be admitted to medical intensive care unit with alcohol withdrawal syndrome
Supplemental oxygen as needed
Aspiration precautions
Incentive spirometry
Head of bed elevation
Follow MSAS
Alcohol withdrawal treatment protocol will continue
Supplements glucose and thiamine to prevent Wernicke's encephalopathy
Supplement multivitamins and folate
Replete deficiencies and glucose, potassium, magnesium and phosphorus
Benzodiazepines as needed-diazepam or lorazepam
Precedex drip as needed
If refractory DTs then would consider Phenobarbital 130-260 mg IV every 20 minutes
Alcohol cessation counseling
Consider psychiatry evaluation
Consider rehabilitation
DVT prophylaxis
GI prophylaxis
Early nutrition
Early mobilization
Updated mother on multidisciplinary rounds 06/24/24
Critical care statement: A total of 55 minutes of critical care time was provided for this patient today. This includes management of unstable vital signs, treatment for and prevention of alcohol withdrawal, evaluation of the patient at bedside,
reviewing the patient's pertinent medical records including radiographs, microbiology, laboratory evaluations, and discussion with primary team, consultants, pharmacy, nutrition, physical therapy, case management, charge nurse, critical care
nursing, and respiratory therapy.
Diagnostic data:
Chest x-ray 10/02/2023-NAD
Abdominal ultrasound 06/22/24-diffuse mild heterogeneous hepatic echotexture suspicious for early changes of cirrhosis
Data Reviewed
-
EKG: Report reviewed by me
Radiology: Report reviewed by me
Ultrasound: Report reviewed by me
Medical Tests (Nuc Med, Echo etc): Report reviewed by me
Labs: Labs reviewed by me
Old Records: Reviewed
Critical Care Time (in minutes): 55
--- NOTE | 2024-06-24 07:29 | W.PN.HOSP.TC ---
Addendum entered and electronically signed by Robert Ruiz MD 06/24/24 14:25:
BMI 18.8 within normal range
Original Note:
Today's Communication/Plan
-
replete Potassium
wean precedex gtt as tolerated
start Librium taper
check ammonia level
cont ativan prn per MSAS protocol
Assessment / Plan
Assessment / Plan
Physical Exam
General: No pallor, cyanosis, or jaundice.
HEENT: Throat clear. PERRLA Normocephalic atraumatic
NECK: Supple. No JVD Carotid Bruits
RESPIRATORY: Lungs clear to auscultation. No crackles wheezes stridor
CVS: S1, S2 sinus tachy. No murmur, rub or gallop.
ABDOMEN: Soft, non-tender. Distended. BS+.
EXTREMITIES: No peripheral cyanosis or edema.
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
Psych: sedated
IMPRESSION:
19M hx depression (reportedly briefly on Lamictal as per patient's mother at bedside, denied hx bipolar) hx heavy ETOH use, vaping, marijuana p/w headache, nausea, vomiting, tremors likely alcohol withdrawal. Daily drinking, hard liquor/vodka.
Never needed treatment for ETOH withdrawal before. Patient's mother also notes patient has been increasingly depressed for the last few weeks. Progressively less functional, poor hygiene. Patient endorses daily drinking to forget his problems.
Denies history suicidal/homicidal ideation. Symptoms significantly improved following Ativan given in ED. Patient able to tolerate oral diet. Tremors remain present on outstretched hands. Labs concerning for ETOH pancreatitis transaminitis
liver injury. Metabolic Alkalosis likely d/t frequent vomiting. Hypokalemia and hypomagnesemia also likely due to vomiting. Abd US concerning for early signs cirrhosis. MELD score 11.
PLAN:
#ETOH withdrawal, Delirium Tremens
#Likely ETOH induced Pancreatitis and Liver Injury
#US concerning for early signs Cirrhosis
Tele admit
thiamine Folate supplementation
on admission Symptoms already improved, there was no need for phenobarb taper at the time
However, over 2nd night stay, patient developed significant confusion/hallucination/agitation concerning for delirium tremens, despite ativan as per MSAS protocol, necessitating transfer to ICU for precedex gtt
Patient also received Valium overnight in ICU with noted subsequent improvement in symptoms
ativan prn per MSAS protocol
start Librium Taper
wean precedex gtt as tolerated
Low residue diet
IVF support
Lipase trended down, Pancreatitis resolved
monitor LFTs
Check Ammonia level, low suspicion hepatic encephalopathy at this time however, patient family endorses pt having regular bowel movements since admission, also no asterixis noted on physical exam
GI eval appreciated
ETOH cessation counseled
#Metabolic Alkalosis resolved
likely d/t excess vomiting
follow up repeat VBG in AM noted significant improvement in pH
#Depression
reportedly briefly on Lamictal in past for Depression
patient and patient's mother Bushra deny hx Bipolar disorder
Denies SI/HI
Psych eval appreciated
#Hypokalemia
#Hypomagnesemia
#QT prolongation likely 2/2 electrolyte abn's as above since improved
monitor and replete electrolytes as necessary
minimize QT prolonging agent use as possible
#Hx Vaping
Tobacco cessation counseled
Nicotine Supplementation
DVT ppx SCD
GI ppx protonix
Full Code
Discussed with patient and patient's mother Bushra at bedside
Total Critical Care Time__50___ minutes. I was immediately available to the patient and staff. I personally examined, reviewed labs, diagnostic images/reports, interpretations, treatment plans, discussed patient care with other providers and
patient's Mother Bushra (patient is unable to make decisions at this time), entered orders as appropriate and documented the medical record.
Anticipated Discharge: > 48 hours
Subjective/Interval History
-
Date of Service: June 24, 2024
sedated on precedex gtt arousable. Does not remember events overnight. Following simple commands. Remains confused, asking if he'd just gone fishing. Fine tremors remain present on outstretched but no asterixis. Mother Bushra present during
evaluation.
Objective Data
-
Labs:
Laboratory Results
06/24/24
03:27
WBC 3.6 L
Hgb 11.0 L
Hct 30.6 L
Plt Count 159
Sodium 137
Potassium 2.9 L
Chloride 103
Carbon Dioxide 28
BUN 3 L
Creatinine 0.6 L
Glucose 102 H
Calcium 8.5
Total Bilirubin 2.2 H
AST 161 H
ALT 79 H
Alkaline Phosphatase 184 H
Vital Signs:
Vital Signs
Temp Pulse Resp BP Pulse Ox
98.4 F 60 18 137/98 99
06/24/24 03:00 06/24/24 06:15 06/24/24 06:15 06/24/24 06:00 06/24/24 06:15
I&O
06/23/24 06/24/24 06/25/24
06:59 06:59 06:59
Intake Total 700 / 700 1408.2 / 1408.2
Output Total 100 / 100
Balance 700 / 700 1308.2 / 1308.2
[2024-06-24] MEDS: NICODERM TRANSDERMAL 21 MG TRANSDERM (08:10)
[2024-06-24] MEDS: PROTONIX 40 MG PO (08:15)
[2024-06-24] MEDS: FOLVITE 1 MG PO (08:15)
[2024-06-24] MEDS: THIAMINE INJECTION 200 MG IV ×2 (08:15→19:16)
--- NOTE | 2024-06-24 09:00 | PTCARENOTE ---
Rec'd pt at 0730 resting in bed sedate on Precedex at 0.5 mcg. Did open eyes to verbal and tactile stimuli but was very confused at where he was and the events of the past 24 hrs. Speech is slow but clear. Oriented to self but then thought he was in
a basement and mentioning names of people that he thought I was familiar with. Frequent cursing during converstation but pt not aggressive in behavior. Was able to tell me his name and birthdate. Does have sl hand tremors. Denies pain. MSAS is a 4.
Rec'd pt on IV Precedex at 0.5 mcg via R wrist/forearm IV site along with LR at 100 ml/hr. Site wnl. REBOLLEDO and does assist with turning. Rec'd pt in 4 pt soft wrist restraints- ankle restraints removed, will l leave wrist restraints on currently. Skin
is pale wm and dry. Respirs are unlabored on RA with sats of 98%. BS are clear. Monitor SR.+ pulses. BP as noted. Diasolic bp does tend to run high. Abd is soft with + BS. Denies nausea. Voided yellow urine in the urinal. 40 meq KCL rider was
infusing via R upper arm IV site- site while not swollen is sl reddened and per pt very sore. IV removed and will have IV team insert a new site. Call heath in reach. Complete CHG bath given. Mouth care given. Call heath in reach. Pts mother in and
both pt and mother updated on plan of care.
--- NOTE | 2024-06-24 10:00 | PTCARENOTE ---
MOM at bedside and pt cooperative currently. Wrist restraints removed. IV team in and new IV placed L hand. KCL rider infusing via site.
--- NOTE | 2024-06-24 10:12 | PN.CDI ---
CDI
- -
CDI:
Physician Documentation Request
Admit Date: 06/22/24 18:31
Dear Doctor Sara,
Patient admitted for alcohol withdrawal.
Please review the following and provide your response in the progress notes.
Clinical Indicators:
Height: 5' 6'
Weight: 116
BMI: 18.8
If possible, please provide an associated diagnosis related to the abnormal BMI, such as:
Underweight
Cachectic
BMI is not significant
Other
BMI < or = to 19.9
Underweight
Weight Loss
Cachectic
Anorexia
Use of terms such as suspected, likely, concern for, or probable (associated with a specific diagnosis that is being evaluated, monitored, or treated as if it exists) are acceptable and can be coded in the inpatient setting, when documented at the
time of discharge.
Thank you,
Lore Lees RN, BSN
CDI Specialist
Available via [employer] text
Please use your independent medical judgment in providing your response.
[2024-06-24] MEDS: KCL 40 MEQ PO (10:55)
[2024-06-24] MEDS: FLUSH (NSS) 1 FLUSH IV (10:55)
--- NOTE | 2024-06-24 11:15 | SUR.PHASEI ---
Mostly sleeping all morning. Does awaken to verbal stimuli but is very groggy. Continues to be oriented to self but confused as to what has happened to him. Reoriented. REBOLLEDO. No tremors noted. Ammonia level sent as ordered. Pt voided and was incont
x2 of smears of avery stool Delores care given. KCL rider completed. Precedex continues to infuse but dose decreased to 0.4 mcg. Pts mother remains at the bedside.
[2024-06-24 11:19] LABS: Ammonia 12 umol/L (9-30)
--- NOTE | 2024-06-24 11:22 | CM ---
Patient seen at bedside with mother present in ICU. Patient resting, mother tearful. CM [facility] supports [facility] was accepted to go to [place]. CM will continue to follow for discharge planning needs.
Plan; RAISSA; [place]
[2024-06-24] MEDS: LIBRIUM 50 MG PO ×3 (12:58→23:02)
--- NOTE | 2024-06-24 14:20 | PTCARENOTE ---
Continues to remain drowsy and cooperative. Precedex decreased to 2 mcg at 1400 and currently pt assisted oob to the bsc for urine and loose brown stoo. Gait is weak and sl unsteady but easily able to bear wt. Still very surprised and unsure of the
events of yesterday- stated ' I had a psychotic break'. Pt currently back in bed with his dad at the bedside. Call heath in reach. K+ level sent as ordered
[2024-06-24 14:37] LABS: Potassium 4.1 mmol/L (3.5-5.1)
--- NOTE | 2024-06-24 14:41 | W.PN.GI.CBS2 ---
Addendum entered and electronically signed by Ashley Contreras MD 06/24/24 18:30:
I saw and examined the patient.
The BAND SPLICER or PA's note was reviewed and I agree with the note.
Comment:
Pt with somnolence earlier, then some agitation
abd: soft, nontender
impression
alcohol
abnl lfts
elevated lipase
plan:
follow lfts and underlying liver dx w/u in progress
no clinical abd pain and tolerated regular diet yesterday
Original Note:
Today's Communication / Plan
-
LFTs improving; continue to trend.
Assessment / Plan
-
Pt is a 19yo with hx anxiety/depression and ETOH abuse. He admits to ETOH use since 8th grade. In review with amount of ETOH consumed increased over time to admitted drinking 1 handle of vodka every other day prior to admission. He admits to
drinking early in day to avoid withdrawal symptoms. On admission he is noted with He denies hx liver issues in past. There is some family with hx ETOH issue but denies any family member with cirrhosis or liver transplant in past. Na 132, K 2.9,
bili 3, AST 335, ALT 94, alk pos 245 and lipase 1971. Platelets 226, albumin 3.5 and INR 1. US completed with liver normal size mild diffuse heterogeneous hepatic echotexture, suspicious for early change of cirrhosis. No suspicious focal
hepatic lesions identified. No definitive nodularity of the hepatic capsular contour.
-ETOH abuse with withdrawal
-US with concern for early cirrhosis
-elevated LFT's
-elevated lipase
-hyponatremia
-hypokalemia
-GERD with PPI use
other med problems:
anxiety/depression
-brown-Schlatter disease
PLAN:
-Etiology of symptoms with concern for ETOH abuse and withdrawal with concern for early cirrhosis.
-His LFTs are improving
-He has no complaints of abdominal pain, with normal/benign exam. Would order CT imaging to evaluate the pancreas if he does develop abdominal pain, but nontender currently so will hold off on further imaging at this time.
-Await hepatitis serologies and other liver labs (still pending)
-All questions answered, again stressed the importance of alcohol abstinence and outpatient follow-up
Subjective
Subjective
Date of Service: June 24, 2024
Patient denies abdominal pain. No nausea or vomiting today.
Labs improving.
Psychiatry has been consulted as well.
Objective
Data Reviewed
Laboratory Data:
Laboratory Results
06/24/24 03:27
06/24/24 14:15
Laboratory Results
PT 13.5 Sec (11.4-14.6) 06/22/24 12:47
INR 1.00 06/22/24 12:47
APTT 23.1 Sec (23.4-35.0) L 06/22/24 12:47
Phosphorus 3.0 mg/dl (2.5-4.5) 06/24/24 03:27
Magnesium 2.0 mg/dl (1.6-2.3) 06/24/24 03:27
Total Bilirubin 2.2 mg/dl (0.2-1.3) H 06/24/24 03:27
AST 161 U/L (17-59) H 06/24/24 03:27
ALT 79 U/L (0-50) H 06/24/24 03:27
Alkaline Phosphatase 184 U/L (38-126) H 06/24/24 03:27
Lipase 994 U/L (23-300) H 06/24/24 03:27
Vital Signs and I&O:
Vital Signs
Temp Pulse Resp BP Pulse Ox
97.8 F 66 21 129/104 99
06/24/24 11:19 06/24/24 12:30 06/24/24 12:30 06/24/24 12:00 06/24/24 12:30
I&O
06/23/24 06/24/24 06/25/24
06:59 06:59 06:59
Intake Total 700 / 700 1408.2 / 1582.3 1172.0 / 1172.0
Output Total 100 / 100 800 / 800
Balance 700 / 700 1308.2 / 1482.3 372.0 / 372.0
Physical Exam
Physical Exam
HEENT: Anicteric
Cardiology: Normal Sinus Rhythm
GI: Soft, Non Distended, Non Tender and Normal Bowel Sounds
Neuro: Non Focal
--- NOTE | 2024-06-24 15:08 | W.PN.UPDATE ---
Addendum entered and electronically signed by Robert Lopez MD 06/25/24 09:46:
apparently phenobarb taper while ordered was never started as it was discontinued even before it was started.
Original Note:
Update Note
Progress Note Update
patient seen chart reviewed. spoke with nursing. father at bedside. patient had period of agitation last night complete with removal of iv. he maintains he was just trying to get to BR and the wires got tangled. he was apparently very restless
and felt to be hallucinating...he cannot say whether he was hallucinating or not. father says he had not slept in some days perhaps contributing to hallucinations. he is now on phenobarb taper as well as librium taper with ativan as per msas.
tapering down precedex. he clearly has a very signficant etoh addiction and should seriously consider in pt rehab. he is not at the point today when he can really focus on this issue. while he does seem better he is still irritable and a bit on
the angry side. every other word was the f word. will see him again in the am and attempt to begin to talk about the need for sobriety and if he is willing how to get to sobriety. father seemed supportive. did not make any changes in his
medication s.
--- NOTE | 2024-06-24 16:27 | PTCARENOTE ---
Remains resting. MSAS is a 1. P Recedex dc.d. No other changes. IV LR infusing at 100 ml/hr via R forearm IV Site.
--- NOTE | 2024-06-24 17:37 | PTCARENOTE ---
Voiding yellow urine in the urinal- with dozing no tremor noted. When awake and with activity- mild tremor. Calm otherwise. Denies pain. Family at the bedside. Pt is cooperative. Still unsure of the events of yesterday and overnight but otherwise is
appropriate and per pt ' I just want to be able to go the f--- home. Curses with converstation but is not aggressive.
[2024-06-24] MEDS: LOVENOX 40 MG SC (18:35)
--- NOTE | 2024-06-24 18:40 | PTCARENOTE ---
Ate some cereal for dinner- no c/o nausea. No other changes
--- NOTE | 2024-06-24 19:56 | PTCARENOTE ---
Pt received start of shift, HR SR/ ST on telemetry. Pt completely oriented. MSAS 3-4 d/t tremors and HR. Mother at bedside. Pt's demeanor pleasant. Updated pt and family on plan of care, pt verbalized understanding. LR infusing at 100mL/hr as
ordered. Pt w/ poor appetite w/ no c/o nausea. Ambulated to commode x1 assist. Gait slightly weak, legs tremulous. BM x1 loose brown stool.
[2024-06-25] VITALS (12 sets, daily range): BP systolic 106–139; BP diastolic 80–99; BMI 18.1
--- NOTE | 2024-06-25 00:11 | PTCARENOTE ---
Reassessed pt. Pt occasionally forgetful but remains oriented to person, place, and time. No further change in assessment.
[2024-06-25 04:12] LABS: Hematocrit 34.2 % (39.0-52.0); Hemoglobin 12.5 g/dL (13.0-18.0); Mean Corp Hgb Conc. 36.5 g/dL (33.0-37.0); Mean Corpuscular Hgb 34.2 pg (27.0-31.0); Mean Corpuscular Volume 93.7 fL (80.0-94.0); Mean Platelet Volume 9.2 fL (7.4-10.4); Platelet Count 170 10^3/uL (130-400); Red Blood Cell Count 3.65 10^6/uL (4.70-6.10); Red Cell Dist. Width 13.5 % (11.5-14.5)
[2024-06-25 04:27] LABS: ALT (SGPT) 73 U/L (0-50); AST (SGOT) 117 U/L (17-59); Albumin 3.4 g/dl (3.5-5.0); Alkaline Phosphatase 193 U/L (38-126); Blood Urea Nitrogen 3 mg/dl (9-20); Calcium 8.5 mg/dl (8.4-10.2); Carbon Dioxide 25 mmol/L (22-30); Chloride 98 mmol/L (98-107); Estimated Creatinine Clearance > 125 ml/min; Glucose 78 mg/dl (70-99); Magnesium 1.4 mg/dl (1.6-2.3); Phosphorus 2.8 mg/dl (2.5-4.5); Potassium 3.6 mmol/L (3.5-5.1); Sodium 133 mmol/L (135-145); Total Bilirubin 2.1 mg/dl (0.2-1.3); Total Protein 5.7 g/dl (6.3-8.2); eGFR > 60.00
[2024-06-25] MEDS: LR 1000 IV (05:36)
[2024-06-25] MEDS: LIBRIUM 50 MG PO ×2 (05:36→19:20)
--- NOTE | 2024-06-25 06:09 | PTCARENOTE ---
Pt MSAS remained 2-4 overnight d/t tremors and HR. Pt maintained orientation to person, place, self, situation. No changes in assessment.
--- NOTE | 2024-06-25 07:14 | PTCARENOTE ---
Assumed care of pt. 0700.
Oriented resting in bed, expressing needs, no confusion noted. Anicteric/Normocephalic, focally intact.
MSAS 1, slight tremors in hands.
Hemodynamically stable, RA maintaining own airway.
--- NOTE | 2024-06-25 07:17 | W.PN.HOSP.TC ---
Today's Communication/Plan
-
Medically stable for downgrade to Tele
Librium Taper
MSAS protocol
Discharge planning Inpt ETOH rehab
Assessment / Plan
Assessment / Plan
Physical Exam
General: no acute distress, appears comfortable at this time
HEENT: Throat clear. PERRLA Normocephalic atraumatic
NECK: Supple. No JVD Carotid Bruits
RESPIRATORY: Lungs clear to auscultation. No crackles wheezes stridor
CVS: S1, S2 sinus tachy. No murmur, rub or gallop.
ABDOMEN: Soft, non-tender. Distended. BS+.
EXTREMITIES: No peripheral cyanosis or edema.
FLYING I INSTRUCTOR: AOx3 conversant coherent tremors present on outstretched hands
Psych: calm/cheerful
IMPRESSION:
19M hx depression (reportedly briefly on Lamictal as per patient's mother at bedside, denied hx bipolar) hx heavy ETOH use, vaping, marijuana p/w headache, nausea, vomiting, tremors likely alcohol withdrawal. Daily drinking, hard liquor/vodka.
Never needed treatment for ETOH withdrawal before. Patient's mother also notes patient has been increasingly depressed for the last few weeks. Progressively less functional, poor hygiene. Patient endorses daily drinking to forget his problems.
Denies history suicidal/homicidal ideation. Symptoms significantly improved following Ativan given in ED. Patient able to tolerate oral diet. Tremors remain present on outstretched hands. Labs concerning for ETOH pancreatitis transaminitis
liver injury. Metabolic Alkalosis likely d/t frequent vomiting. Hypokalemia and hypomagnesemia also likely due to vomiting. Abd US concerning for early signs cirrhosis. MELD score 11.
PLAN:
#ETOH withdrawal, Delirium Tremens
#Likely ETOH induced Pancreatitis and Liver Injury
#US concerning for early signs Cirrhosis
Tele admit
thiamine Folate supplementation
on admission Symptoms already improved, there was no need for phenobarb taper at the time
However, over 2nd night stay, patient developed significant confusion/hallucination/agitation concerning for delirium tremens, despite ativan as per MSAS protocol, necessitating transfer to ICU for precedex gtt
Patient also received Valium overnight in ICU with noted subsequent improvement in symptoms
ativan prn per MSAS protocol
Librium Taper
weaned off precedex gtt stable for downgrade to Tele
Low fat diet, tolerating
IVF support completed
Lipase trended down, Pancreatitis resolved
monitor LFTs
GI eval appreciated
ETOH cessation counseled, patient agreeable to inpt ETOH rehab when medically stable for discharge.
#Metabolic Alkalosis
likely d/t excess vomiting
resolved
#Depression
reportedly briefly on Lamictal in past for Depression
patient and patient's mother Bushra deny hx Bipolar disorder
Denies SI/HI
Psych eval appreciated
#Hypokalemia
#Hypomagnesemia
#QT prolongation likely 2/2 electrolyte abn's as above since significantly improved
monitor and replete electrolytes as necessary
minimize QT prolonging agent use as possible
#Hx Vaping
Tobacco cessation counseled
Nicotine Supplementation
DVT ppx SCD
GI ppx protonix
Full Code
Medically stable for downgrade to Tele
Discussed with patient and patient's parents
I spent a total of 50 minutes with the patient or on the floor. More than 50% of this time involved counseling and coordination of care.
Anticipated Discharge: 24 - 48 hours
Subjective/Interval History
-
Date of Service: June 25, 2024
No acute distress, sitting up comfortably in bed. Reports feeling well. Tolerating diet. tremors remain present on outstretched hands. Patient's father present during evaluation.
Objective Data
-
Labs:
Laboratory Results
06/25/24
03:41
WBC 5.0
Hgb 12.5 L
Hct 34.2 L
Plt Count 170
Sodium 133 L
Potassium 3.6
Chloride 98
Carbon Dioxide 25
BUN 3 L
Creatinine 0.6 L
Glucose 78
Calcium 8.5
Total Bilirubin 2.1 H
AST 117 H
ALT 73 H
Alkaline Phosphatase 193 H
Vital Signs:
Vital Signs
Temp Pulse Resp BP Pulse Ox
98.4 F 85 23 113/87 100
06/25/24 03:04 06/25/24 06:30 06/25/24 06:30 06/25/24 06:00 06/25/24 07:11
I&O
06/24/24 06/25/24 06/26/24
06:59 06:59 06:59
Intake Total 1408.2 / 1582.3 3675.2 / 3775.2 100 / 100
Output Total 100 / 100 2425 / 2425 0 / 0
Balance 1308.2 / 1482.3 1250.2 / 1350.2 100 / 100
--- NOTE | 2024-06-25 07:50 | W.PN.INTV ---
Today's Communication / Plan
Recommendations
Wean Precedex
Continue Ativan as needed
Continue nicotine patch, thiamine, PPI
Psychiatry input appreciated
Stable for transfer out of ICU-call pulmonary if respiratory issues arise
Assessment
-
19-year-old vaping male with alcohol use disorder and marijuana use presented with headache, nausea, vomiting, tremors and alcohol withdrawal-blow down helper consulted for Precedex, alcohol withdrawal, critical care management 06/24/24.
Alcohol use disorder with alcohol withdrawal
Elevated liver functions
Pancreatitis-elevated lipase
Metabolic alkalosis
Hypokalemia
Hypomagnesemia
Leukopenia
Fyhoce-gvosumlawb-blrgmuiskq 11.0
Conditions present prior to admission:
Alcohol use disorder.
Marijuana use.
Vapping.
Depression.
Plan
Patient much improved-Precedex weaned
Supplemental oxygen as needed
Aspiration precautions
Incentive spirometry
Head of bed elevation
Continue to follow MSAS
Alcohol withdrawal treatment protocol will continue
Supplements glucose and thiamine to prevent Wernicke's encephalopathy
Supplement multivitamins and folate
Replete deficiencies and glucose, potassium, magnesium and phosphorus
Benzodiazepines as needed-diazepam or lorazepam
Precedex drip has been weaned off
Phenobarbital If needed
Alcohol cessation counseling
Psychiatry following-correspondence reviewed
Inpatient rehab once discharged
DVT prophylaxis-on Lovenox
GI prophylaxis -on pantoprazole
Begin nutrition
Begin to ambulate
Updated mother on multidisciplinary rounds 06/24/24
Patient stable for transfer out of ICU blow down helper will sign off-call pulmonary if respiratory issues arise
Reviewed the patient's pertinent medical records including radiographs, microbiology, laboratory evaluations, and discussion with primary team, consultants, pharmacy, nutrition, physical therapy, case management, charge nurse, critical care
nursing, and respiratory therapy.
Diagnostic data:
Chest x-ray 10/02/2023-NAD
Abdominal ultrasound 06/22/24-diffuse mild heterogeneous hepatic echotexture suspicious for early changes of cirrhosis
Subjective Dataa
Subjective Data
Date of Service:
Date of Service: June 25, 2024
Chief Complaint: Mold Sheet Cleaner Follow Up and Pulmonary Follow Up
Subjective:
much improved, Precedex weaned, more oriented, less agitated, less tremulous
Review of Systems
General: Other ( per HPI)
Objective Data
Data Reviewed
Vital Signs / I&O / Oxygen:
Vital Signs
Temp Pulse Resp BP Pulse Ox
98.6 F 85 23 113/87 100
06/25/24 07:47 06/25/24 06:30 06/25/24 06:30 06/25/24 06:00 06/25/24 07:11
Intake and Output
06/24/24 06/25/24 06/26/24
06:59 06:59 06:59
Intake Total 1408.2 / 1582.3 3675.2 / 3775.2 100 / 100
Output Total 100 / 100 2425 / 2425 0 / 0
Balance 1308.2 / 1482.3 1250.2 / 1350.2 100 / 100
SaO2 100
Physical Exam
General: Respiratory Distress (n) and Comfortable
HEENT: Normocephalic, Anicteric and Moist Mucous Membranes
Cardiovascular: Regular Rhythm
Respiratory: Crackles (n), Rhonchi (n), Non-Labored Respirations, Accessory Resp Muscle Use (n) and Stridor (n)
GI: Soft, Non Distended and Non Tender
Neurology: Awake, Alert and No Motor Deficits
Skin: Warm, Good Color, Cyanosis (n), Jaundice (n) and Rash (n)
Labs/Micro/Reports
Lab Data
06/25/24 03:41
06/25/24 03:41
[2024-06-25] MEDS: MAGNESIUM SULFATE 50 IV (07:54)
[2024-06-25] MEDS: THIAMINE INJECTION 200 MG IV (07:54)
[2024-06-25] MEDS: PROTONIX 40 MG PO (07:54)
[2024-06-25] MEDS: FOLVITE 1 MG PO (07:54)
[2024-06-25] MEDS: NICODERM TRANSDERMAL 21 MG TRANSDERM (07:56)
--- NOTE | 2024-06-25 08:33 | W.PN.GI.CBS2 ---
Today's Communication / Plan
-
alcohol abstinence
Assessment / Plan
-
PLAN:
- Pt needs alcohol abstinence and inpatient rehab was recommended
- his liver w/u is in progress although alcohol likely cause
- will have our office call to have him f/u as outpatient to go over labs and further counselor/art therapist
will sign off call with questions
Subjective
Subjective
Date of Service: June 25, 2024
Pt awake more appropriate today. No complaints
Objective
Data Reviewed
Laboratory Data:
Laboratory Results
06/25/24 03:41
06/25/24 03:41
Laboratory Results
PT 13.5 Sec (11.4-14.6) 06/22/24 12:47
INR 1.00 06/22/24 12:47
APTT 23.1 Sec (23.4-35.0) L 06/22/24 12:47
Phosphorus 2.8 mg/dl (2.5-4.5) 06/25/24 03:41
Magnesium 1.4 mg/dl (1.6-2.3) L 06/25/24 03:41
Total Bilirubin 2.1 mg/dl (0.2-1.3) H 06/25/24 03:41
AST 117 U/L (17-59) H 06/25/24 03:41
ALT 73 U/L (0-50) H 06/25/24 03:41
Alkaline Phosphatase 193 U/L (38-126) H 06/25/24 03:41
Lipase 994 U/L (23-300) H 06/24/24 03:27
Vital Signs and I&O:
Vital Signs
Temp Pulse Resp BP Pulse Ox
98.6 F 85 23 113/87 100
06/25/24 07:47 06/25/24 06:30 06/25/24 06:30 06/25/24 06:00 06/25/24 07:11
I&O
06/24/24 06/25/24 06/26/24
06:59 06:59 06:59
Intake Total 1408.2 / 1582.3 3675.2 / 3775.2 250 / 250
Output Total 100 / 100 2425 / 2425 0 / 0
Balance 1308.2 / 1482.3 1250.2 / 1350.2 250 / 250
Physical Exam
Physical Exam
HEENT: Anicteric (anicteric)
GI: Soft and Non Distended
Neuro: Non Focal (oriented, calm)
--- NOTE | 2024-06-25 09:44 | W.PN.UPDATE ---
Update Note
Progress Note Update
patient seen chart reviewed. discussed with nursing and with cm. dad at bedside. the patient is much better. he is engaged in appropriate conversation and is actually addressing his issues. admits that while he has experienced dysphoria the alcohol
has taken on a life of his own and he sees no success for him until he gets sober. he is willing to do in pt. we talked about the need to identify people places and things associated w his use and to formulate a plan to deal with them. he could
benefit from the [facility] which i am suggesting for him. i talked to a rep from that facility and he agrees with me that [facility] would be appropriate. cm will talk to [facility]. patient and family are in agreement
--- NOTE | 2024-06-25 10:00 | PTCARENOTE ---
Pt. downgraded to MS, bed ready.
[2024-06-25] MEDS: KCL 40 MEQ PO (11:32)
--- NOTE | 2024-06-25 13:29 | CM ---
CM reviewed with RAISSA and per liaison plan continues to be Manuel. [facility] CM will continue to follow for discharge planning needs.
Plan; RAISSA/ Manuel
[2024-06-25] MEDS: ATIVAN 1 MG PO ×2 (14:10→22:42)
[2024-06-25] MEDS: LOVENOX 40 MG SC (18:39)
[2024-06-25 19:09] LABS: Hepatitis B Surface Antigen Negative (Negative)
[2024-06-25 19:28] LABS: Hepatitis A Antibody, Total Positive (Negative); Hepatitis B Core Ab, Total Negative (Negative); Hepatitis B Surface Antibody Negative; Hepatitis C Antibody Negative (Negative)
[2024-06-25 20:18] LABS: Hepatitis A IgM Antibody Negative (Negative); Hepatitis B Core Ab, IgM Negative (Negative)
[2024-06-25] MEDS: MAGNESIUM OXIDE 500 MG PO (20:42)
[2024-06-25] MEDS: VITAMIN B1 100 MG PO (20:42)
[2024-06-25 20:56] LABS: Ceruloplasmin 17 mg/dL (15-30)
[2024-06-26 01:13] LABS: ANA, IgG Reflex to HEp-2 None Detected (None Detected)
[2024-06-26 03:15] VITALS: BP 122/85
[2024-06-26] MEDS: LIBRIUM 50 MG PO (05:31)
[2024-06-26 07:00] VITALS: BP 112/74
--- NOTE | 2024-06-26 07:49 | W.PN.HOSP.TC ---
Today's Communication/Plan
-
see a/p
Assessment / Plan
Assessment / Plan
Physical Exam
General: no acute distress, appears comfortable at this time
HEENT: Throat clear. PERRLA Normocephalic atraumatic
NECK: Supple. No JVD Carotid Bruits
RESPIRATORY: Lungs clear to auscultation. No crackles wheezes stridor
CVS: S1, S2 sinus tachy. No murmur, rub or gallop.
ABDOMEN: Soft, non-tender. Distended. BS+.
EXTREMITIES: No peripheral cyanosis or edema.
TOOL CRIB LEAD: AOx3 conversant coherent tremors present on outstretched hands
Psych: calm/cheerful
IMPRESSION:
19M hx depression (reportedly briefly on Lamictal as per patient's mother at bedside, denied hx bipolar) hx heavy ETOH use, vaping, marijuana p/w headache, nausea, vomiting, tremors likely alcohol withdrawal. Daily drinking, hard liquor/vodka.
Never needed treatment for ETOH withdrawal before. Patient's mother also notes patient has been increasingly depressed for the last few weeks. Progressively less functional, poor hygiene. Patient endorses daily drinking to forget his problems.
Denies history suicidal/homicidal ideation. Symptoms significantly improved following Ativan given in ED. Patient able to tolerate oral diet. Tremors remain present on outstretched hands. Labs concerning for ETOH pancreatitis transaminitis
liver injury. Metabolic Alkalosis likely d/t frequent vomiting. Hypokalemia and hypomagnesemia also likely due to vomiting. Abd US concerning for early signs cirrhosis. MELD score 11.
PLAN:
#ETOH withdrawal, Delirium Tremens
#Likely ETOH induced Pancreatitis and Liver Injury
#US concerning for early signs Cirrhosis
Tele admit
thiamine Folate supplementation
on admission Symptoms already improved, there was no need for phenobarb taper at the time
However, over 2nd night stay, patient developed significant confusion/hallucination/agitation concerning for delirium tremens, despite ativan as per MSAS protocol, necessitating transfer to ICU for precedex gtt
Patient also received Valium overnight in ICU with noted subsequent improvement in symptoms
ativan prn per MSAS protocol
Librium Taper
weaned off precedex gtt stable for downgrade to Tele
IVF support completed
Lipase trended down, Pancreatitis resolved
Low fat diet advanced to regular, tolerating
monitor LFTs
GI eval appreciated
ETOH cessation counseled, patient agreeable to inpt ETOH rehab when medically stable for discharge.
#Metabolic Alkalosis
likely d/t excess vomiting
resolved
#Depression
reportedly briefly on Lamictal in past for Depression
patient and patient's mother Bushra deny hx Bipolar disorder
Denies SI/HI
Psych eval appreciated
#Hypokalemia
#Hypomagnesemia
#QT prolongation likely 2/2 electrolyte abn's as above since resolved
monitor and replete electrolytes as necessary
#Hx Vaping
Tobacco cessation counseled
Nicotine Supplementation
DVT ppx SCD
GI ppx protonix
Full Code
Discussed with patient and patient's father Jae
I spent a total of 45 minutes with the patient or on the floor. More than 50% of this time involved counseling and coordination of care.
Anticipated Discharge: 24 - 48 hours
Subjective/Interval History
-
Date of Service: June 26, 2024
no acute distress, reports feeling well. Denies new acute issues. tremors remain present on outstretched hands though improved. patient's father Jae present during evaluation.
Objective Data
-
Labs:
Laboratory Results
06/26/24
07:11
WBC Pending
Hgb Pending
Hct Pending
Plt Count Pending
Sodium Pending
Potassium Pending
Chloride Pending
Carbon Dioxide Pending
BUN Pending
Creatinine Pending
Glucose Pending
Calcium Pending
Total Bilirubin Pending
AST Pending
ALT Pending
Alkaline Phosphatase Pending
Vital Signs:
Vital Signs
Temp Pulse Resp BP Pulse Ox
98.2 F 96 20 122/85 99
06/26/24 03:15 06/26/24 03:15 06/26/24 03:15 06/26/24 03:15 06/26/24 03:15
I&O
06/25/24 06/26/24 06/27/24
06:59 06:59 06:59
Intake Total 3675.2 / 3775.2 1510 / 1510
Output Total 2425 / 2425 500 / 500
Balance 1250.2 / 1350.2 1010 / 1010
[2024-06-26] MEDS: PROTONIX 40 MG PO (08:10)
[2024-06-26] MEDS: FOLVITE 1 MG PO (08:10)
[2024-06-26] MEDS: VITAMIN B1 100 MG PO ×2 (08:10→20:49)
[2024-06-26] MEDS: MAGNESIUM OXIDE 500 MG PO (08:10)
[2024-06-26] MEDS: NICODERM TRANSDERMAL 21 MG TRANSDERM (08:11)
[2024-06-26 08:34] LABS: Hematocrit 36.7 % (39.0-52.0); Hemoglobin 13.3 g/dL (13.0-18.0); Mean Corp Hgb Conc. 36.2 g/dL (33.0-37.0); Mean Corpuscular Hgb 34.4 pg (27.0-31.0); Mean Corpuscular Volume 94.8 fL (80.0-94.0); Mean Platelet Volume 9.5 fL (7.4-10.4); Platelet Count 188 10^3/uL (130-400); Red Blood Cell Count 3.87 10^6/uL (4.70-6.10); Red Cell Dist. Width 14.2 % (11.5-14.5); White Blood Cell Count 3.7 10^3/uL (4.8-10.8)
[2024-06-26 10:34] LABS: ALT (SGPT) 67 U/L (0-50); AST (SGOT) 81 U/L (17-59); Albumin 3.5 g/dl (3.5-5.0); Alkaline Phosphatase 202 U/L (38-126); Blood Urea Nitrogen 8 mg/dl (9-20); Calcium 9.1 mg/dl (8.4-10.2); Carbon Dioxide 25 mmol/L (22-30); Chloride 100 mmol/L (98-107); Estimated Creatinine Clearance > 125 ml/min; Glucose 87 mg/dl (70-99); Potassium 3.7 mmol/L (3.5-5.1); Sodium 135 mmol/L (135-145); Total Bilirubin 1.7 mg/dl (0.2-1.3); Total Protein 5.9 g/dl (6.3-8.2); eGFR > 60.00
[2024-06-26 11:00] VITALS: BP 124/84
--- NOTE | 2024-06-26 13:18 | W.PN.UPDATE ---
Update Note
Progress Note Update
patient seen chart reviewed. discussed with both parents teodoro and cm. the patient is progressing reasonably well through wd period but he is faltering about going directly to rehab at this point insisting on going home for one night to be w his
gf, have dinner, shower etc. says he will go to [facility] the next day. this is not the way referral to rehab usually goes. discussed w teodoro...for us to arrange transfer to rehab he needs to go directly from here. teodoro will be in on weekend to
discuss w him. family is trying to convince patient that this is what he needs to do. i did tell the patient and family that if he signs out of hospital or if he refuses to go directly from here it is likely they will have to arrange his admission
to rehab on their own which they agreed to do. of course family is appropriately concerned that if the patient comes home he will relapse. i tried to impress upon him that at this moment it looks easy to stay sober given all he has been through but
this addiction is powerful and it is not a given that he will be able to stay sober once he is back to the people places and things associated w his addiction. no changes made in his medications at this point. family and teodoro have suggested
[facility] which is fine with me.
--- NOTE | 2024-06-26 14:41 | CM ---
Spoke w/ Bertha/RAISSA, [facility]. CM faxed clinicals to [phone].
Per psychiatry, patient currently deciding on going home then to rehab vs going straight to rehab from the hospital. Patient and family made aware hospital cannot arrange rehab admission if patient chooses to d/c home. RAISSA following and will see
patient over the weekend.
Plan: [facility] rehab
[2024-06-26 15:35] VITALS: BP 135/92
[2024-06-26] MEDS: LOVENOX 40 MG SC (17:26)
[2024-06-26 19:29] VITALS: BP 115/78
[2024-06-26 21:39] LABS: LKM-1 Ab (IgG) 0.6 U (0.0-24.9); Soluble Liver Antigen Ab 1.8 U (0.0-24.9)
[2024-06-26] MEDS: ATIVAN 1 MG PO (23:28)
[2024-06-26 23:40] VITALS: BP 122/83
[2024-06-27 03:00] VITALS: BP 111/67
[2024-06-27 07:00] VITALS: BP 120/82
--- NOTE | 2024-06-27 07:12 | W.PN.HOSP.TC ---
Today's Communication/Plan
-
anticipate Medically stable for discharge inpt ETOH rehab after last dose Librium tomorrow
Assessment / Plan
Assessment / Plan
Physical Exam
General: no acute distress, appears comfortable at this time
HEENT: Throat clear. PERRLA Normocephalic atraumatic
NECK: Supple. No JVD Carotid Bruits
RESPIRATORY: Lungs clear to auscultation. No crackles wheezes stridor
CVS: S1, S2 sinus tachy. No murmur, rub or gallop.
ABDOMEN: Soft, non-tender. Distended. BS+.
EXTREMITIES: No peripheral cyanosis or edema.
MACHINE MILKER: AOx3 conversant coherent tremors present on outstretched hands though significantly improved
Psych: calm/cheerful
IMPRESSION:
19M hx depression (reportedly briefly on Lamictal as per patient's mother at bedside, denied hx bipolar) hx heavy ETOH use, vaping, marijuana p/w headache, nausea, vomiting, tremors likely alcohol withdrawal. Daily drinking, hard liquor/vodka.
Never needed treatment for ETOH withdrawal before. Patient's mother also notes patient has been increasingly depressed for the last few weeks. Progressively less functional, poor hygiene. Patient endorses daily drinking to forget his problems.
Denies history suicidal/homicidal ideation. Symptoms significantly improved following Ativan given in ED. Patient able to tolerate oral diet. Tremors remain present on outstretched hands. Labs concerning for ETOH pancreatitis transaminitis
liver injury. Metabolic Alkalosis likely d/t frequent vomiting. Hypokalemia and hypomagnesemia also likely due to vomiting. Abd US concerning for early signs cirrhosis. MELD score 11.
PLAN:
#ETOH withdrawal, Delirium Tremens
#Likely ETOH induced Pancreatitis and Liver Injury
#US concerning for early signs Cirrhosis
Tele admit
thiamine Folate supplementation
on admission Symptoms already improved, there was no need for phenobarb taper at the time
However, over 2nd night stay, patient developed significant confusion/hallucination/agitation concerning for delirium tremens, despite ativan as per [facility] protocol, necessitating transfer to ICU for precedex gtt
Patient also received Valium overnight in ICU with noted subsequent improvement in symptoms
ativan prn per [facility] protocol
Librium Taper Wednesday 06/28 Last day, anticipate Medically stable for discharge inpt ETOH rehab after last dose Librium
weaned off precedex gtt and downgraded to Tele
IVF support completed
Lipase trended down, Pancreatitis resolved
Low fat diet advanced to regular, tolerating
monitor LFTs
GI eval appreciated
ETOH cessation counseled, patient agreeable to inpt ETOH rehab when medically stable for discharge.
#Metabolic Alkalosis
likely d/t excess vomiting
resolved
#Depression
reportedly briefly on Lamictal in past for Depression
patient and patient's mother Bushra deny hx Bipolar disorder
Denies SI/HI
Psych eval appreciated
#Hypokalemia
#Hypomagnesemia
#QT prolongation likely 2/2 electrolyte abn's as above since resolved
monitor and replete electrolytes as necessary
#Hx Vaping
Tobacco cessation counseled
Nicotine Supplementation
DVT ppx SCD
GI ppx protonix
Full Code
Discussed with patient and patient's Mother Bushra
I spent a total of 45 minutes with the patient or on the floor. More than 50% of this time involved counseling and coordination of care.
Anticipated Discharge: Within 24 hours
Subjective/Interval History
-
Date of Service: June 27, 2024
No acute distress, ambulating without issues or need for assist device. Denies new acute issues. Overall reports feeling well.
Objective Data
-
Labs:
Laboratory Results
06/27/24
06:20
WBC Pending
Hgb Pending
Hct Pending
Plt Count Pending
Sodium Pending
Potassium Pending
Chloride Pending
Carbon Dioxide Pending
BUN Pending
Creatinine Pending
Glucose Pending
Calcium Pending
Total Bilirubin Pending
AST Pending
ALT Pending
Alkaline Phosphatase Pending
Vital Signs:
Vital Signs
Temp Pulse Resp BP Pulse Ox
97.7 F 86 14 111/67 98
06/27/24 03:00 06/27/24 03:00 06/27/24 03:00 06/27/24 03:00 06/27/24 03:00
I&O
06/26/24 06/27/24 06/28/24
06:59 06:59 06:59
Intake Total 0 / 1989 1440 / 1440
Output Total 500 / 500
Balance 1010 / 1490 1440 / 1440
[2024-06-27 07:15] LABS: Hematocrit 36.4 % (39.0-52.0); Hemoglobin 12.9 g/dL (13.0-18.0); Mean Corp Hgb Conc. 35.4 g/dL (33.0-37.0); Mean Corpuscular Hgb 34.1 pg (27.0-31.0); Mean Corpuscular Volume 96.3 fL (80.0-94.0); Mean Platelet Volume 9.5 fL (7.4-10.4); Platelet Count 178 10^3/uL (130-400); Red Blood Cell Count 3.78 10^6/uL (4.70-6.10); Red Cell Dist. Width 14.5 % (11.5-14.5); White Blood Cell Count 3.3 10^3/uL (4.8-10.8)
[2024-06-27 07:36] LABS: ALT (SGPT) 55 U/L (0-50); AST (SGOT) 57 U/L (17-59); Albumin 3.1 g/dl (3.5-5.0); Alkaline Phosphatase 169 U/L (38-126); Blood Urea Nitrogen 11 mg/dl (9-20); Calcium 9.3 mg/dl (8.4-10.2); Carbon Dioxide 29 mmol/L (22-30); Chloride 102 mmol/L (98-107); Estimated Creatinine Clearance 120 ml/min; Glucose 88 mg/dl (70-99); Phosphorus 4.1 mg/dl (2.5-4.5); Potassium 4.4 mmol/L (3.5-5.1); Sodium 137 mmol/L (135-145); Total Bilirubin 1.4 mg/dl (0.2-1.3); Total Protein 5.4 g/dl (6.3-8.2); eGFR > 60.00
[2024-06-27] MEDS: VITAMIN B1 100 MG PO ×2 (09:24→20:11)
[2024-06-27] MEDS: NICODERM TRANSDERMAL 21 MG TRANSDERM (09:24)
[2024-06-27] MEDS: LIBRIUM 50 MG PO (09:24)
[2024-06-27] MEDS: PROTONIX 40 MG PO (09:24)
[2024-06-27] MEDS: FOLVITE 1 MG PO (09:25)
--- NOTE | 2024-06-27 11:03 | W.PN.UPDATE ---
Update Note
Progress Note Update
Patient states he is doing well, no withdrawal symptoms observed. He is being visited by his GF as well as mother who are supportive.
At this point he is agreeable to be transferred straight to rehab rather avery going home first which is a good idea.
Mother is hoping he can leave tomorrow so the family can facilitate the transfer.
--- NOTE | 2024-06-27 11:20 | CM ---
in flight refueling manager spoke with RAISSA this am and plan is for patient to go to [place] in the [facility] when stable, patient will have phone interview and then transfer hopefully on Saturday, will wait on update from physician.
Plan; Patient to transfer to [place] possible Saturday if medically cleared.
[2024-06-27 11:38] VITALS: BP 120/83
[2024-06-27 15:00] VITALS: BP 118/76
[2024-06-27] MEDS: LOVENOX SC (17:37)
[2024-06-27 19:44] VITALS: BP 115/85
[2024-06-27] MEDS: ATIVAN 1 MG PO (23:18)
[2024-06-27 23:20] VITALS: BP 124/84
[2024-06-28 02:56] VITALS: BP 111/83
[2024-06-28 07:00] VITALS: BP 113/63
--- NOTE | 2024-06-28 07:54 | W.PN.HOSP.TC ---
Today's Communication/Plan
-
discharge
Assessment / Plan
Assessment / Plan
Physical Exam
General: no acute distress, appears comfortable at this time
HEENT: Throat clear. PERRLA Normocephalic atraumatic
NECK: Supple. No JVD Carotid Bruits
RESPIRATORY: Lungs clear to auscultation. No crackles wheezes stridor
CVS: S1, S2 sinus tachy. No murmur, rub or gallop.
ABDOMEN: Soft, non-tender. Distended. BS+.
EXTREMITIES: No peripheral cyanosis or edema.
BRICK PAVER: AOx3 conversant coherent tremors present on outstretched hands though improving
Psych: calm/cheerful
IMPRESSION:
19M hx depression (reportedly briefly on Lamictal as per patient's mother at bedside, denied hx bipolar) hx heavy ETOH use, vaping, marijuana p/w headache, nausea, vomiting, tremors likely alcohol withdrawal. Daily drinking, hard liquor/vodka.
Never needed treatment for ETOH withdrawal before. Patient's mother also notes patient has been increasingly depressed for the last few weeks. Progressively less functional, poor hygiene. Patient endorses daily drinking to forget his problems.
Denies history suicidal/homicidal ideation. Symptoms significantly improved following Ativan given in ED. Patient able to tolerate oral diet. Tremors remain present on outstretched hands. Labs concerning for ETOH pancreatitis transaminitis
liver injury. Metabolic Alkalosis likely d/t frequent vomiting. Hypokalemia and hypomagnesemia also likely due to vomiting. Abd US concerning for early signs cirrhosis. MELD score 11.
PLAN:
#ETOH withdrawal, Delirium Tremens
#Likely ETOH induced Pancreatitis and Liver Injury
#US concerning for early signs Cirrhosis
Tele admit
thiamine Folate supplementation
on admission Symptoms already improved, there was no need for phenobarb taper at the time
However, over 2nd night stay, patient developed significant confusion/hallucination/agitation concerning for delirium tremens, despite ativan as per [facility] protocol, necessitating transfer to ICU for precedex gtt
Patient also received Valium overnight in ICU with noted subsequent improvement in symptoms
ativan prn per [facility] protocol
weaned off precedex gtt and downgraded to Tele
IVF support completed
Lipase trended down, Pancreatitis resolved
Low fat diet advanced to regular, tolerating
LFTs improving
GI eval appreciated
ETOH cessation counseled, patient agreeable to inpt ETOH rehab
Completed Librium Taper
#Metabolic Alkalosis
likely d/t excess vomiting
resolved
#Depression
reportedly briefly on Lamictal in past for Depression
patient and patient's mother Bushra deny hx Bipolar disorder
Denies SI/HI
Psych eval appreciated
#Hypokalemia
#Hypomagnesemia
#QT prolongation likely 2/2 electrolyte abn's as above since resolved
monitor and replete electrolytes as necessary
#Hx Vaping
Tobacco cessation counseled
Nicotine Supplementation
DVT ppx SCD
GI ppx protonix
Full Code
Medically stable for discharge inpatient ETOH rehab with outpatient follow up recommendations.
Discussed with patient and patient's Father Jae and Mother Bushra
Total Time Preparing Discharge ___40____ minutes including examination of the patient, summary of the hospital stay, instructions for continuing care to all relevant caregivers; and preparation of discharge records, prescriptions, and referral
forms if necessary.
Anticipated Discharge: Today
Subjective/Interval History
-
Date of Service: June 28, 2024
no acute distress. Reports feeling well. denies new acute issues.
Objective Data
-
Vital Signs:
Vital Signs
Temp Pulse Resp BP Pulse Ox
98.2 F 89 14 111/83 97
06/28/24 02:56 06/28/24 02:56 06/28/24 02:56 06/28/24 02:56 06/28/24 02:56
I&O
0506/28/24 06/29/24
06:59 06:59 06:59
Intake Total 1440 / 1440 480 / 480
Balance 1440 / 1440 480 / 480
[2024-06-28] MEDS: NICODERM TRANSDERMAL 21 MG TRANSDERM (08:01)
[2024-06-28] MEDS: PROTONIX 40 MG PO (08:02)
[2024-06-28] MEDS: FOLVITE 1 MG PO (08:02)
[2024-06-28] MEDS: LIBRIUM 50 MG PO (08:02)
[2024-06-28] MEDS: VITAMIN B1 100 MG PO (08:03)
--- NOTE | 2024-06-28 09:09 | W.DCSUMMARY ---
Discharge Summary
Discharge Data
Date of Admission: 06/22/24
Date of Discharge: 06/28/24
-
Pending Results: No
Discharge Plan
-
Patient Disposition: Other
Discharge Diagnosis/Procedures: Alcohol withdrawal, Delirium Tremens
Alcohol induced Pancreatitis and Liver Injury
Ultrasound concerning for early signs Cirrhosis
Depression
Condition: Fair
Diet: Regular
Activity: As tolerated
Driving Restrictions: As prior to admission
Bathing Restrictions: None
Blood Work: Repeat CBC and CMP with a primary care provider in 1 week of discharge.
Activity Restrictions/Additional Instructions:
Multivitamin prescribed for nutrition support. This is also available over the counter.
It is strongly recommended that you absolutely abstain from further alcohol use as continued usage will likely lead to return of symptoms, overall worsening of your condition, increase likelihood of developing fulminant liver failure, and increase
your overall risk for morbidity/mortality.
It is also highly recommended that you abstain from vaping/tobacco use as well. Nicotine supplementation has been prescribed to help with abstinence, this is also available over the counter.
Instructions: Alcohol withdrawal, Alcohol use disorder - Discharge instructions
Referrals:
Elvira Ramírez DO [Family Provider] - in one week (Follow up with primary care provider in 1 week of discharge from inpatient alcohol rehab.)
Ashley Contreras MD [Active] - in three to four weeks (follow up with Dr. Contreras or GIAN in 3-4 week for ETOH abuse and concern for possible early cirrhosis. call [phone] to schedule)
Additional Discharge Medication Instructions: avoid all alcohol and toxins to liver -supplement, tylenol etc.
Prescriptions:
New
multivitamin Tablet
1 tab PO DAILY Qty: 30 0RF
nicotine 21 mg/24 hr patch 24 hour
1 patch transdermal DAILY Qty: 7 0RF
Continued
ondansetron HCl 4 mg Tablet
4 mg PO Q8HPRN PRN (Reason: nausea)
pantoprazole [Protonix] 40 mg Tablet,Delayed Release (Dr/Ec)
40 mg PO DAILY
Discharge Orders:
Discharge Patient (As Directed); Ordered 06/28/24
Ordered By: Robert Ruiz
Discharge Date and Time
Print Language: HAITIAN
--- NOTE | 2024-06-28 09:38 | CM ---
CM noted dc order. Reviewed chart. Call placed to [facility] Rapid [facility] line - s/w Del. He will be reaching out to the pt this morning to complete intake. CM to await return call later today regarding details of placement etc-CM number provided to
Del.
[2024-06-28 19:07] LABS: Alpha-1-Antitrypsin 166 mg/dL (90-200); Alpha-1-Antitrypsin Phenotype M1M2
== END 2024-06-28 10:15 | disposition other institution (70) | DRG 896 ==
LOC: 4 WEST ACU 18:31
PROVIDERS: Nurse Practitioner Adult Health; Physician Assistant; ADMITTING PHYSICIAN Internal Medicine; CONSULT PHYSICIAN Internal Medicine; CONSULT PHYSICIAN Internal Medicine Critical Care Medicine; CONSULT PHYSICIAN Psychiatry & Neurology Psychiatry; EMERGENCY PHYSICIAN Emergency Medicine; FAMILY PHYSICIAN Family Medicine
DX: F10.231 Alcohol dependence with withdrawal delirium (principal); K85.90 Acute pancreatitis without necrosis or infection, unspecified; E87.3 Alkalosis; E87.1 Hypo-osmolality and hyponatremia; E87.6 Hypokalemia; E83.42 Hypomagnesemia; K76.89 Other specified diseases of liver; F12.90 Cannabis use, unspecified, uncomplicated
CPT/HCPCS: 76700; 80053; 80306; 80307; 81003; 82077; 82103; 82104; 82140; 82390; 82728; 82805; 83516; 83540; 83550; 83690; 83735; 84100; 84132; 85025; 85027; 85610; 85730; 86038; 86376; 86381; 86704; 86705; 86706; 86708; 86709; 86803; 87340; 93005; 96365; 96366; 96367; 96375; 96376; 99285; 99406

== ENCOUNTER 2024-12-15 02:50 | Emergency (ER) | payer OTHER, SELFPAY ==
[2024-12-15 02:53] VITALS: BP 116/86
--- NOTE | 2024-12-15 03:50 | ED.GENMED ---
History of Present Illness
General
Chief Complaint: Hallucinations
Source: patient, family (Mother who is at bedside) and previous hospital records (Acute hospitalization June 22 to June 28, 2024 for acute alcohol withdrawal)
Exam Limitations: none
Time Seen by Provider: 12/15/24 03:07
Nursing documentation reviewed up to this point in time: agreed with
History of Present Illness
History of Present Illness:
The patient is a 19-year-old male who presents, accompanied by his mother, with complaints of hallucinations and inability to sleep following recent alcohol consumption. Symptoms began on Saturday with a general feeling of malaise, mild nausea, and a
recorded fever of 100�F. On Saturday night as well as Saturday night, the patient consumed alcohol at a bar, after which he experienced blurry vision. He reported hallucinations characterized by visual and auditory phenomena that were frightening in
nature, beginning Saturday night and persisting through Saturday. The patient spent an entire night (Saturday to Saturday) without sleep, compounded by additional audio hallucinations starting Saturday morning. He reports seeing shadows while in a dark
room. He also reports hearing footsteps, doors opening and closing. He denies hearing voices.
On Saturday, the patient reports having a twisted tea with dinner and continued to experience hallucinations and insomnia. By Saturday morning, he sought assistance from his parents who picked him up from his girlfriend's college dorm where he was
staying for the weekend, due to persistent hallucinations and lack of sleep.
The patient has history of alcohol abuse, required acute hospitalization here in May due to alcohol withdrawal syndrome and during that hospitalization suffered similar hallucinations. He was discharged to an inpatient alcohol rehab and he admits
to remaining sober until August when he began drinking again. He denies daily alcohol consumption but does drink alcohol perhaps 4 out of 7 days a week.
He is maintained on doxepin. Admits to sporadic compliance. Denies taking extra doses of doxepin. He is also prescribed hydroxyzine for as needed use. Despite taking doxepin and hydroxyzine tonight, he remained agitated/anxious and unable to
sleep.
His alcohol consumption since August has increased to about four days a week but not daily. He denies recent intake of any recreational drugs. Regarding gastrointestinal symptoms, the patient reports nausea last experienced on Saturday and sporadic
diarrhea on Saturday through Saturday, without hematochezia or melena.
No close contacts with similar symptoms. No recent antibiotic use.
Low-grade fever reported Saturday night, has since resolved. He has not had a cough nor sore throat. He denies abdominal pain.
He denies suicidal thoughts.
Past History
Past History
ED Past Medical History: Psychiatric (Depression, alcohol abuse) and Other (Alcohol abuse with severe alcohol withdrawal syndrome requiring acute hospitalization May 2024)
ED Past Surgical History: Orthopedic (Knee surgery)
Social History
Tobacco: Vaping
Alcohol: Daily
Drug: Marijuana
Personal: Single
Living: with family
Employment: Employed
Family History
Family History: Other (Noncontributory)
Phy Exam
Physical Exam
Physical Exam:
GENERAL: 19-year-old male appears his stated age, awake and alert, mildly to moderately anxious. Cooperative. Mother is accompanying.
EYE: pupils equal and reactive. Questionably mildly icteric.
NECK: Supple, nontender, no meningismus, no significant adenopathy.
ENT: posterior pharynx is clear, oral mucosa is mildly dry. TM clear b/l, nares patent.
CARDIAC: Regular rate and rhythm. no murmur.
LUNGS: Clear breath sounds bilaterally, no acute respiratory distress, no wheezes/rales/rhonchi
ABDOMEN: Soft, nondistended, without focal tenderness, no r/g, no cvat. normoactive BS.
NEUROLOGICAL: Alert and oriented x3, no focal neuro deficits. Mild tremor of outstretched hands. Negative asterixis.
SKIN: Warm and dry, normal color, skin intact. No rash.
MUSCULOSKELETAL: No C/C/E. peripheral pulses are full and equal b/l. No palpable tenderness.
PSYCH: Mildly to moderately anxious. Admits to auditory as well as visual hallucinations. Denies hearing voices. Denies suicidal thoughts nor homicidal thoughts. Reports difficulty sleeping over the past several days.
Scores
Withdrawal Assessment of Alcohol
Withdrawal Assessment Completed?: Yes
Nausea and Vomiting: Mild nausea with no vomiting
Tactile Disturbances: None
Tremor: Not visible, but can be felt fingertip to fingertip
Auditory Disturbances: Moderate harshness or ability to frighten
Paroxysmal Sweats: No sweat visible
Visual Disturbances: Moderately severe hallucinations
Anxiety: Moderately anxious, or guarded, so anxiety is inferred
Headache, Fullness in Head: Not present
Agitation: Moderately fidgety and restless
Orientation and clouding of sensorium: Oriented and can do serial additions
Total CIWA Score: 17
Alcohol Withdrawal Medication Recommendation: Equal to MSAS Score 8-11. Lorazepam 1-2mg IV NOW & re-assess q1hr
Course
Orders/Labs/Results
Orders:
Orders
12/15/24 03:48
0.9% Sodium Chloride 1000 ml [Nss] 1,000 ml IV 1,000 mls/hr
FOLic ACID [Folvite] 1 mg 0.9% Sodium Chloride 50 ml [Nss] 50 ml IV NOW
Thiamine Injection 200 mg IV NOW STA
12/15/24 04:03
Alcohol Urgent
Ammonia Urgent
Complete Blood Count/With Diff Urgent
Comprehensive Metabolic Panel Urgent
Lipase Urgent
Magnesium Urgent
Phosphorus Urgent
Prothrombin Time Urgent
Urinalysis Reflex To Culture Urgent
Date Specimen was Collected: 12/15/24
Time Specimen was Collected: 04:00
Urine Drug Abuse Screen Urgent
Date Specimen was Collected: 12/15/24
Time Specimen was Collected: 04:00
Urine Microscopic Reflex Cult Urgent
12/15/24 04:05
diazePAM [Valium Injection] 5 mg IV NOW STA
12/15/24 04:09
Electrocardiogram (*1) Urgent
Reason for Study: QTc Monitoring
EKG- Treatment ONCE
12/15/24 04:10
FOLic ACID [Folvite] 1 mg 0.9% Sodium Chloride 50 ml [Nss] 50 ml IV NOW
12/15/24 05:02
KCl 40 Meq/0.9%Sodchl 1000 ml [NSS with KCL 40 MEQ] 40 meq in 1,000 ml IV 250 mls/hr
12/15/24 05:03
Potassium Chloride [KCl] 40 meq PO NOW STA
12/15/24 06:19
Chlordiazepoxide HCl [Librium] 50 mg PO NOW STA
Abnormal Lab Results
12/15/24
04:03
WBC 3.7 L 10^3/uL
(4.8-10.8)
Monocytes % 12.5 H %
(1.7-9.3)
Sodium 131 L mmol/L
(135-145)
Potassium 2.8 L mmol/L
(3.5-5.1)
Chloride 94 L mmol/L
(98-107)
Carbon Dioxide 31 H mmol/L
(22-30)
Glucose 102 H mg/dl
(70-99)
Total Bilirubin 1.4 H mg/dl
(0.2-1.3)
Ammonia < 9 L umol/L
(9-30)
Ur Occult Blood Reflex 2+ A
(Negative)
Urine Albumin (Reflex) 2+ A
(Neg - Trace)
Ur Tricyclics Screen Positive H
(Negative)
U Marijuana (THC) Screen Positive H
(Negative)
12/15/24 04:03
12/15/24 04:03
Vital Signs
Initial and Last Documented VS:
Initial Vital Signs
Temp Pulse Resp BP Pulse Ox
98.1 F 88 20 116/86 96
12/15/24 02:53 12/15/24 02:53 12/15/24 02:53 12/15/24 02:53 12/15/24 02:53
Last Documented Vital Signs
Temp Pulse Resp BP Pulse Ox
97.7 F 75 15 120/88 98
12/15/24 05:26 12/15/24 05:45 12/15/24 05:45 12/15/24 05:00 12/15/24 05:45
MDM/Problems Addressed
Differential Diagnosis Includes:
The Differential Diagnosis includes, in no particular order and is not limited to:
1. Alcohol withdrawal syndrome
2. Sleep deprivation
3. Psychotic disorder due to substance use
4. Substance-induced delirium
5. Anxiety disorder with psychotic features
6. Delirium tremens
7. Acute stress disorder
8. Viral gastroenteritis
9. Primary or secondary insomnia
10. Schizophrenia or other primary psychotic disorder
MDM/Problems Addressed:
Generalized anxiety with acute insomnia
Recent nausea/vomiting, diarrhea and reported low-grade fever, have since resolved.
Recurrent alcohol abuse
Doxepin noncompliance vs over usage. Pt denies taking extra Doxepin however mother relates missing doses in bottle. Potential for TCA overdose.
Will check labs including alcohol level, LFTs, lipase, UDS.
Initiate IV fluids, IV folic acid and thiamine.
cardiac monitor and EKG.
Will continue to monitor for alcohol withdrawal symptoms/MSAS
currently CIWA score 17==MSAS score 8-12. will give an IV dose of valium.
Chronic conditions affecting care:
History of alcohol abuse
History of severe alcohol withdrawal, DTs, alcoholic pancreatitis, alcoholic transaminitis with concern for cirrhosis on imaging May 2024
Chronic conditions affecting care: Psychiatric illness
*Pulse Oximetry
SaO2: 96
Oxygen Mode of Delivery: Room air
Patient hypoxic: no
*EKG
Interpreted by ED Provider?: Yes
Interpretation: abnormal
Comparison EKG: no changes
Rate: normal
Rhythm: sinus
[place]: normal axis
Interval: normal interval
QRS Pattern: normal QRS
Ischemia: non-specific ST changes
*Continuous Yarn Dyeing Machine Operator Interpretation
Rate: normal
Interpretation: normal
Rhythm: sinus
*Critical Care Note
Total Time (30-74mins, 75-104mins- exclusive of procedures): 30
comment:
Critical care statement: A total of 30 minutes of critical care time was provided for this patient. This includes management of unstable vital signs, evaluation of the patient at bedside, reviewing the patient's pertinent medical records, discussion
with consultants, review of old EKGs and review of pertinent medical records. This time with separate from time utilized to perform the aforementioned documented procedures
Update Note
Update Note:
05:30
Patient is much calmer, less agitated and no longer tremulous after an IV dose of Valium.
Nausea has resolved as well.
Labs remarkable for mild but stable leukopenia.
Moderate hypokalemia at 2.8. LFTs within normal limits. Normal lipase. T. bili mildly elevated 1.4, improved from 3.0 during initial hospitalization May of this year, eventually improved to 1.4 upon discharge. Ammonia is normal. Pro time is
normal.
Alcohol level is 0. UDS positive for THC and TCA, as expected.
EKG shows normal sinus rhythm, nonspecific ST-T wave abnormalities but overall similar and unchanged from June 2024. QTc of 4.5, similar and unchanged.
I continue with significant clinical concern for alcohol withdrawal syndrome as cause for hallucinations, tremor, agitation and poor sleep. Patient admits that he was attempting to 'cut down on alcohol consumption' prior to visiting his girlfriend
over the weekend at [facility] as she admits that she is concerned for his alcohol consumption. I suspect his alcohol withdrawal began over the weekend due to significantly curbing his alcohol consumption.
Recommend hospitalization for continued observation and continued treatment of alcohol withdrawal however patient adamantly refuses to be admitted to the hospital.
He is agreeable to remain in the ED for continued IV fluids and IV potassium replacement however, declines acute hospitalization despite my as well as his mother's urging.
I have concern for recurrent/worsening alcohol withdrawal symptoms as well as significant concern for ongoing alcohol abuse.
Will plan to have patient sign out AGAINST MEDICAL ADVICE.
I have written a prescription for tapering dose of Librium.
Will also contact [facility] for bedside assessment.
ED Attending Note
-
Portions of this chart may have been created with voice recognition software.� Occasional wrong word or��sound alike� substitutions may have occurred due to the inherent limitations of voice recognition software.
Discharge Plan
Departure
Patient Disposition: Against Medical Advice
Date of Disposition: 12/15/24
Time of Disposition: 06:29
Condition: Fair
Discharge Problem:
Alcohol withdrawal hallucinosis, Acute hypokalemia, Alcohol-induced sleep disorder, insomnia type, with onset during discontinuation/withdrawal
Instructions: Alcohol withdrawal, Alcohol use disorder - ED (DC)
Prescriptions:
New
chlordiazepoxide HCl 25 mg capsule
50 mg PO QID PRN (Reason: alcohol withdrawal) Qty: 20 0RF
No Action
pantoprazole [Protonix] 40 mg Tablet,Delayed Release (Dr/Ec)
40 mg PO DAILY
doxepin 50 mg Capsule
50 mg PO DAILY
hydroxyzine pamoate 50 mg Capsule
50 mg PO BID PRN (Reason: anxiety)
Referrals:
Laxmi Jimenez MD [Family Provider, Family Practice] - Call in 1-3 days for appt
Activity Restrictions/Additional Instructions:
I highly encourage you to resume sobriety and abstain from all alcohol consumption.
You have been prescribed Librium to be taken as a tapering dose as follows:
2 capsules 4 times per day today
2 capsules 3 times per day tomorrow
2 capsules twice daily on
2 capsules at bedtime on Saturday.
Interventions
Interventions:
*Risk Screen - Suicide Last Done: 12/15/24 02:53
*General Assessment Last Done: 12/15/24 04:00
*Neglect/Abuse Screening Last Done: 12/15/24 02:53
*ED- Fall Risk Assessment Last Done: 12/15/24 04:00
*ED COVID-19 Vaccine History Last Done: 12/15/24 04:00
*ED Influenza Vaccine History Last Done: 12/15/24 04:00
ED- Neurological Assessment Last Done: 12/15/24 04:14
Discharge Date and Time
Print Language: KAZAKH
[2024-12-15] MEDS: NSS 1000 IV (03:58)
[2024-12-15] MEDS: THIAMINE INJECTION 200 MG IV (04:24)
[2024-12-15] MEDS: VALIUM INJECTION 5 MG IV (04:24)
[2024-12-15 04:25] LABS: Urine Character Clear (Clear)
[2024-12-15 04:26] LABS: INR 0.97; PT 13.2 Sec (11.4-14.6)
[2024-12-15 04:27] LABS: Hematocrit 39.5 % (39.0-52.0); Hemoglobin 14.0 g/dL (13.0-18.0); Mean Corp Hgb Conc. 35.4 g/dL (33.0-37.0); Mean Corpuscular Volume 82.1 fL (80.0-94.0); Nucleated Red Blood Cells % 0 % (-); Platelet Count 187 10^3/uL (130-400); Red Cell Dist. Width 13.3 % (11.5-14.5)
[2024-12-15] MEDS: FOLVITE 50.2 MG IV (04:36)
[2024-12-15 04:39] VITALS: BMI 22.3
[2024-12-15 04:43] LABS: ALT (SGPT) 42 U/L (0-50); AST (SGOT) 48 U/L (17-59); Albumin 4.5 g/dl (3.5-5.0); Alkaline Phosphatase 72 U/L (38-126); Ammonia < 9 umol/L (9-30); Blood Urea Nitrogen 18 mg/dl (9-20); Calcium 9.8 mg/dl (8.4-10.2); Carbon Dioxide 31 mmol/L (22-30); Chloride 94 mmol/L (98-107); Estimated Creatinine Clearance > 125 ml/min; Glucose 102 mg/dl (70-99); Lipase 61 U/L (23-300); Potassium 2.8 mmol/L (3.5-5.1); Sodium 131 mmol/L (135-145); Total Protein 7.0 g/dl (6.3-8.2); eGFR > 60.00
[2024-12-15 04:52] LABS: Magnesium 2.1 mg/dl (1.6-2.3)
[2024-12-15 05:00] VITALS: BP 120/88
[2024-12-15] MEDS: NSS with KCL 40 MEQ 1000 IV (05:14)
[2024-12-15] MEDS: KCL 40 MEQ PO (05:17)
[2024-12-15 05:42] LABS: Urine Red Blood Cell 0-2 /HPF (0-2); Urine Squamous Cell 0-2 /LPF (Few); Urine White Cell 0-2 /HPF (0-5)
[2024-12-15 06:00] VITALS: BP 119/80
[2024-12-15] MEDS: LIBRIUM 50 MG PO (06:23)
[2024-12-15 07:00] VITALS: BP 118/75
[2024-12-15 08:00] VITALS: BP 92/60
[2024-12-15] MEDS: VALIUM 2 MG PO (10:31)
--- NOTE | 2024-12-15 10:47 | EDRN ---
Discharge instructions reviewed with patient and his mother. Verbalized understanding.
[2024-12-15 10:48] VITALS: BP 128/78
== END 2024-12-15 10:50 | disposition left against medical advice (07) ==
LOC: EMR 02:50
PROVIDERS: EMERGENCY PHYSICIAN Emergency Medicine; FAMILY PHYSICIAN Family Medicine
DX: F10.232 Alcohol dependence with withdrawal with perceptual disturbance (principal); Y90.9 Presence of alcohol in blood, level not specified; F41.1 Generalized anxiety disorder; E87.6 Hypokalemia; G47.00 Insomnia, unspecified; F17.290 Nicotine dependence, other tobacco product, uncomplicated
CPT/HCPCS: 96374; 96375; 96361; 99284; 80053; 80306; 81003; 81015; 82077; 82140; 83690; 83735; 84100; 85025; 85610; 93005

== ENCOUNTER 2025-01-24 22:43 | Inpatient (IN) | payer OTHER, SELFPAY ==
[2025-01-24 19:43] VITALS: BP 101/65
[2025-01-24 19:44] VITALS: BP 101/65
[2025-01-24 19:48] VITALS: BMI 20.6
[2025-01-24] MEDS: NSS 1000 IV ×2 (19:57→21:39)
[2025-01-24 20:00] VITALS: BP 103/50
[2025-01-24 20:11] LABS: Hematocrit 38.4 % (39.0-52.0); Hemoglobin 13.3 g/dL (13.0-18.0); Mean Corp Hgb Conc. 34.6 g/dL (33.0-37.0); Mean Corpuscular Volume 79.3 fL (80.0-94.0); Nucleated Red Blood Cells % 0 % (-); Platelet Count 267 10^3/uL (130-400); Red Cell Dist. Width 13.1 % (11.5-14.5)
[2025-01-24 20:31] LABS: Acetaminophen < 10 ug/ml (10-30); Blood Urea Nitrogen 10 mg/dl (9-20); Calcium 9.8 mg/dl (8.4-10.2); Carbon Dioxide 23 mmol/L (22-30); Chloride 107 mmol/L (98-107); Estimated Creatinine Clearance 120 ml/min; Glucose 102 mg/dl (70-99); Potassium 4.0 mmol/L (3.5-5.1); Salicylate < 1.0 mg/dl (2.0-20.0); Sodium 140 mmol/L (135-145); eGFR > 60.00
[2025-01-24 21:00] VITALS: BP 98/47
[2025-01-24 21:00] LABS: ALT (SGPT) 26 U/L (0-50); AST (SGOT) 33 U/L (17-59); Albumin 4.9 g/dl (3.5-5.0); Alkaline Phosphatase 74 U/L (38-126); Magnesium 2.5 mg/dl (1.6-2.3); Total Protein 7.7 g/dl (6.3-8.2)
--- NOTE | 2025-01-24 21:35 | ED.GENMED ---
History of Present Illness
<Tara Chavarria PA-C - Last Filed: 01/25/25 11:16>
General
Chief Complaint: Alcohol Problem
Source: patient and family
Exam Limitations: clinical condition
Time Seen by Provider: 01/24/25 20:08
Nursing documentation reviewed up to this point in time: agreed with
History of Present Illness
History of Present Illness:
Patient is a 19-year-old male with history alcohol use disorder who presents to the emergency department with parents. Patient unable to contribute to history given acute alcohol intoxication. Parents state that patient has struggled with alcohol
use for a few years now. He was recently in rehab June 2024. However�today states that since returning home from rehab in the summer he has been consistently abusing alcohol.
This has been a 'especially tough week'. Today, they believe that patient drank over 1 liter of vodka. He was extremely intoxicated at home, becoming combative prompting visit to the emergency department.
They do state that he has made some passive thoughts of self-harm over the past few weeks. He is currently seeing a therapist who specializes in alcohol abuse. Parents strongly for that patient go back to rehab.
Patient has no history of alcohol withdrawal seizures however was hospitalized in June 2024 for alcohol withdrawal requiring ICU level of care.
Past History
<Tara Chavarria PA-C - Last Filed: 01/25/25 11:16>
Past History
ED Past Medical History: Psychiatric (Depression, alcohol abuse) and Other (Alcohol abuse with severe alcohol withdrawal syndrome requiring acute hospitalization May 2024)
ED Past Surgical History: Orthopedic (Knee surgery)
Social History
Tobacco: Vaping
Alcohol: Daily
Drug: Marijuana
Personal: Single
Living: with family
Employment: Employed
Family History
Family History: Other (Noncontributory)
Review of Systems
<Tara Chavarria PA-C - Last Filed: 01/25/25 11:16>
Review of Systems
Allergies reviewed?: Yes
All Other Systems: ROS reviewed and negative except as documented in HPI and ROS
Phy Exam
<Tara Chavarria PA-C - Last Filed: 01/25/25 11:16>
Physical Exam
Physical Exam:
Vitals: Patient's vital signs are stable.
General: Patient is somnolent
Skin: Warm and dry, no rashes or lesions
Head: Normocephalic, atraumatic
Eyes: Sclera nonicteric. EOMs intact. No nystagmus.
Throat: Protecting airway
Cardiac: Regular rate and rhythm, no murmurs.
Pulm: Normal respiratory effort. Lungs clear
Abdomen: No abdominal tenderness.
Extremities: No evidence of cyanosis or edema
Neuro: Somnolent. Responds to painful stimuli. Otherwise unable to complete neuro evaluation
Scores
<Tara Chavarria PA-C - Last Filed: 01/25/25 11:16>
Withdrawal Assessment of Alcohol
Withdrawal Assessment Completed?: Not applicable
Course
<Tara Chavarria PA-C - Last Filed: 01/25/25 11:16>
Orders/Labs/Results
Orders:
Orders
01/24/25 19:56
0.9% Sodium Chloride 1000 ml [Nss] 1,000 ml IV BOLUS
01/24/25 19:58
Alcohol Urgent
Basic Metabolic Panel Urgent
Complete Blood Count/With Diff Urgent
Comprehensive Metabolic Panel Urgent
Comment: ADD ON
Magnesium Urgent
Comment: ADD ON
Salicylate Urgent
Tylenol [Acetaminophen] Urgent
01/24/25 20:37
Add On- LAB Urgent
Tests Added?: CMP, magnesium
01/24/25 21:06
FOLic ACID [Folvite] 1 mg 0.9% Sodium Chloride 50 ml [Nss] 50 ml IV NOW
Thiamine Injection 100 mg IV NOW STA
01/24/25 21:17
CT Head W/o Iv Contrast Urgent
Comment:
Reason For Exam: AMS, hallucinations
01/24/25 21:32
Ammonia Urgent
01/24/25 21:34
0.9% Sodium Chloride 1000 ml [Nss] 1,000 ml IV BOLUS
01/24/25 22:26
diazePAM [Valium Injection] 5 mg IV NOW STA
01/24/25 22:27
Admit/Transfer Patient As Directed
Co-Sign Provider:
Level of Care: Inpatient admission
Assign to:: IMU- Intermediate Care
Physician / Group: Boyd
Diagnosis: Alcohol Intoxication / Withdrawal
Reason for Hospitalization: Alcohol Intoxication / Withdrawal
Expected length of stay greater than two midnights?: Yes
ELOS- Estimated Length of Stay in days: 4
I certify the patient meets the requirements for IP care: Yes
PRN Pain Medication Management As Directed
May give lesser potent ordered pain med per pt: Yes
preference::
Protocol:: Medication orders for pain may be administered in a
manner that supports deferring to patient preference
when the pt is:
- Requesting an ordered lesser potent pain medication.
Least to most potent pain medications are defined
as: acetaminophen < NSAID < tramadol < opioids
(morphine, oxycodone, hydromorphone).
- Requesting a lesser dose of the same medication IF
ORDERED.
- Requesting a less intrusive route of administration
if both routes are prescribed by the provider (PO <
IV).
01/24/25 22:28
Code Status As Directed
Resuscitation Status: Full Code
01/24/25 23:16
Urinalysis Routine
Date Specimen was Collected: 01/24/25
Time Specimen was Collected: 23:15
Urine Drug Abuse Screen Routine
Date Specimen was Collected: 01/24/25
Time Specimen was Collected: 23:15
01/25/25 01:33
0.9% Sodium Chloride [Nss (Preservative Free)] See Protocol IV PRN PRN
Acetaminophen [Tylenol] 650 mg PO Q4HPRN PRN
FOLic ACID [Folvite] 1 mg 0.9% Sodium Chloride 50 ml [Nss] 50 ml IV DAILYPRN
Lactated Ringers [Lr] 1,000 ml IV 125 mls/hr
Lorazepam [Ativan] 1 mg IV Q1HPRN PRN
Lorazepam [Ativan] 1 mg PO Q2HPRN PRN
Lorazepam [Ativan] 2 mg IV Q1HPRN PRN
Ondansetron Injectable [Zofran] 4 mg IV Q6HPRN PRN
Phenobarbital Sodium [Phenobarbital] 260 mg 0.9% Sodium Chloride 100 ml [Nss] 100 ml IV NOW
01/25/25 01:33
1:1 Observation - Suicide/ Violent Behavior As Directed
Case Management Consult ONCE
Case Management Consult: Discharge Planning
Case Management Consult Once
Case Management Consult: Other
Comment: Substance abuse counseling
Consult Notification Routine
Specialty to Notify: Psychiatry
Date consulting provider notified: 01/25/25
Time consulting provider notified: 07:10
Notified:: Provider
DIETARY IP CONSULT Routine
Reason for Consult: Nutrition support, possible refeeding guidelines
PSYCHIATRY CONSULT Routine
Consulting Provider: Tim Dejesus
Was physician already notified: No
Reason for consult: EtOH Use Disorder / Suicidal Ideation
Activity As Directed
Activity Level: Ambulate
With Assistance
EKG with chest pain [ECG as needed] As Directed
ECG as needed for:: Chest Pain
I/O [Intake/ Output] As Directed
Frequency: Per unit guidelines
MSAS SCORE As Directed
MSAS Score 0-4: Repeat MSAS every 2 hours until 0-4 for three consecutive assessments, then every 4 hours x 48
hours.
MSAS Score 5-7: For MILD withdrawl symptoms. Repeat MSAS and RASS every 2 hours
MSAS Score 8-11: For MODERATE withdrawal symptoms. Repeat MSAS and RASS every 1 hour. Consider ICU or IMU
level of care.
MSAS Score > 11: For SEVERE withdrawal symptoms. Repeat MSAS and RASS every 1 hour. Notify provider, consider
ICU level of care.
MSAS Additional Instructions: If no improvement or no decrease in score from severe to moderate within 12
hours, consult psychiatry
MSAS Notify Provider: Notify provider if patient requires more than 10 mg of Lorazepam in eight hour period.
Pneumatic Compression Sleeves As Directed
Type: Knee high
Precautions As Directed
Type of Precautions: Seizure
Vital Signs As Directed
Frequency: Per unit guidelines
Oxygen Therapy [O2 Therapy] [RESP] Routine
Titrate/Wean O2 to maintain O2 sat greater than (%): 94
DX Deep Vein Thrombosis Video Routine
01/25/25 03:38
Complete Blood Count/No Diff IN AM
PTT Urgent
Phosphorus Urgent
Prothrombin Time Urgent
01/25/25 06:00
EKG [Electrocardiogram (*1)] IN AM
Reason for Study: Chest Pain
Clear Liquid
At Your Request: Full Participation
01/25/25 08:00
FOLic ACID [Folvite] 1 mg PO DAILY
Pantoprazole [Protonix IV] 40 mg IV DAILY
Phenobarbital Sodium [Phenobarbital] 97.5 mg IV TID
01/27/25 08:00
Phenobarbital [Luminal] 64.8 mg PO TID
01/28/25 08:00
Thiamine HCl [Vitamin B1] 100 mg PO BID
01/29/25 08:00
Phenobarbital [Luminal] 32.4 mg PO TID
Abnormal Lab Results
01/24/25 01/24/25
19:58 21:32
Hct 38.4 L %
(39.0-52.0)
MCV 79.3 L fL
(80.0-94.0)
Absolute Lymphs (auto) 0.9 L 10^3/uL
(1.2-3.4)
Lymphocytes % 18.0 L %
(20.5-51.1)
Glucose 102 H mg/dl
(70-99)
Magnesium 2.5 H mg/dl
(1.6-2.3)
Ammonia < 9 L umol/L
(930)
Salicylates < 1.0 L mg/dl
(2.0-20.0)
Acetaminophen < 10 L ug/ml
(30)
Alcohol, Quantitative 447 H* mg/dl
01/24/25 19:58
01/24/25 19:58
Vital Signs
Initial and Last Documented VS:
Initial Vital Signs
Temp Pulse Resp BP Pulse Ox
97.8 F 88 22 101/65 94
01/24/25 19:43 01/24/25 19:43 01/24/25 19:43 01/24/25 19:43 01/24/25 19:43
Last Documented Vital Signs
Temp Pulse Resp BP Pulse Ox
97.5 F 108 22 133/100 99
01/25/25 07:17 01/25/25 09:30 01/25/25 09:30 01/25/25 09:30 01/25/25 09:30
Kaylynnlt;Lillian Chavez, - Last Filed: 01/24/25 22:19>
Orders/Labs/Results
Orders:
Orders
01/24/25 19:56
0.9% Sodium Chloride 1000 ml [Nss] 1,000 ml IV BOLUS
01/24/25 19:58
Alcohol Urgent
Basic Metabolic Panel Urgent
Complete Blood Count/With Diff Urgent
Comprehensive Metabolic Panel Urgent
Comment: ADD ON
Magnesium Urgent
Comment: ADD ON
Salicylate Urgent
Tylenol [Acetaminophen] Urgent
01/24/25 20:37
Add On- LAB Urgent
Tests Added?: CMP, magnesium
01/24/25 21:06
FOLic ACID [Folvite] 1 mg 0.9% Sodium Chloride 50 ml [Nss] 50 ml IV NOW
Thiamine Injection 100 mg IV NOW STA
01/24/25 21:17
CT Head W/o Iv Contrast Urgent
Comment:
Reason For Exam: AMS, hallucinations
01/24/25 21:32
Ammonia Urgent
01/24/25 21:34
0.9% Sodium Chloride 1000 ml [Nss] 1,000 ml IV BOLUS
01/24/25 22:26
diazePAM [Valium Injection] 5 mg IV NOW STA
01/24/25 22:27
Admit/Transfer Patient As Directed
Co-Sign Provider:
Level of Care: Inpatient admission
Assign to:: IMU- Intermediate Care
Physician / Group: Boyd
Diagnosis: Alcohol Intoxication / Withdrawal
Reason for Hospitalization: Alcohol Intoxication / Withdrawal
Expected length of stay greater than two midnights?: Yes
ELOS- Estimated Length of Stay in days: 4
I certify the patient meets the requirements for IP care: Yes
PRN Pain Medication Management As Directed
May give lesser potent ordered pain med per pt: Yes
preference::
Protocol:: Medication orders for pain may be administered in a
manner that supports deferring to patient preference
when the pt is:
- Requesting an ordered lesser potent pain medication.
Least to most potent pain medications are defined
as: acetaminophen < NSAID < tramadol < opioids
(morphine, oxycodone, hydromorphone).
- Requesting a lesser dose of the same medication IF
ORDERED.
- Requesting a less intrusive route of administration
if both routes are prescribed by the provider (PO <
IV).
01/24/25 22:28
Code Status As Directed
Resuscitation Status: Full Code
01/24/25 23:16
Urinalysis Routine
Date Specimen was Collected: 01/24/25
Time Specimen was Collected: 23:15
Urine Drug Abuse Screen Routine
Date Specimen was Collected: 01/24/25
Time Specimen was Collected: 23:15
01/25/25 01:33
0.9% Sodium Chloride [Nss (Preservative Free)] See Protocol IV PRN PRN
Acetaminophen [Tylenol] 650 mg PO Q4HPRN PRN
FOLic ACID [Folvite] 1 mg 0.9% Sodium Chloride 50 ml [Nss] 50 ml IV DAILYPRN
Lactated Ringers [Lr] 1,000 ml IV 125 mls/hr
Lorazepam [Ativan] 1 mg IV Q1HPRN PRN
Lorazepam [Ativan] 1 mg PO Q2HPRN PRN
Lorazepam [Ativan] 2 mg IV Q1HPRN PRN
Ondansetron Injectable [Zofran] 4 mg IV Q6HPRN PRN
Phenobarbital Sodium [Phenobarbital] 260 mg 0.9% Sodium Chloride 100 ml [Nss] 100 ml IV NOW
01/25/25 01:33
1:1 Observation - Suicide/ Violent Behavior As Directed
Case Management Consult ONCE
Case Management Consult: Discharge Planning
Case Management Consult Once
Case Management Consult: Other
Comment: Substance abuse counseling
Consult Notification Routine
Specialty to Notify: Psychiatry
Date consulting provider notified: 01/25/25
Time consulting provider notified: 07:10
Notified:: Provider
DIETARY IP CONSULT Routine
Reason for Consult: Nutrition support, possible refeeding guidelines
PSYCHIATRY CONSULT Routine
Consulting Provider: Tim Dejesus
Was physician already notified: No
Reason for consult: EtOH Use Disorder / Suicidal Ideation
Activity As Directed
Activity Level: Ambulate
With Assistance
EKG with chest pain [ECG as needed] As Directed
ECG as needed for:: Chest Pain
I/O [Intake/ Output] As Directed
Frequency: Per unit guidelines
MSAS SCORE As Directed
MSAS Score 0-4: Repeat MSAS every 2 hours until 0-4 for three consecutive assessments, then every 4 hours x 48
hours.
MSAS Score 5-7: For MILD withdrawl symptoms. Repeat MSAS and RASS every 2 hours
MSAS Score 8-11: For MODERATE withdrawal symptoms. Repeat MSAS and RASS every 1 hour. Consider ICU or IMU
level of care.
MSAS Score > 11: For SEVERE withdrawal symptoms. Repeat MSAS and RASS every 1 hour. Notify provider, consider
ICU level of care.
MSAS Additional Instructions: If no improvement or no decrease in score from severe to moderate within 12
hours, consult psychiatry
MSAS Notify Provider: Notify provider if patient requires more than 10 mg of Lorazepam in eight hour period.
Pneumatic Compression Sleeves As Directed
Type: Knee high
Precautions As Directed
Type of Precautions: Seizure
Vital Signs As Directed
Frequency: Per unit guidelines
Oxygen Therapy [O2 Therapy] [RESP] Routine
Titrate/Wean O2 to maintain O2 sat greater than (%): 94
DX Deep Vein Thrombosis Video Routine
01/25/25 03:38
Complete Blood Count/No Diff IN AM
PTT Urgent
Phosphorus Urgent
Prothrombin Time Urgent
01/25/25 06:00
EKG [Electrocardiogram (*1)] IN AM
Reason for Study: Chest Pain
Clear Liquid
At Your Request: Full Participation
01/25/25 08:00
FOLic ACID [Folvite] 1 mg PO DAILY
Pantoprazole [Protonix IV] 40 mg IV DAILY
Phenobarbital Sodium [Phenobarbital] 97.5 mg IV TID
01/27/25 08:00
Phenobarbital [Luminal] 64.8 mg PO TID
01/28/25 08:00
Thiamine HCl [Vitamin B1] 100 mg PO BID
01/29/25 08:00
Phenobarbital [Luminal] 32.4 mg PO TID
Abnormal Lab Results
01/24/25 01/24/25
19:58 21:32
Hct 38.4 L %
(39.0-52.0)
MCV 79.3 L fL
(80.0-94.0)
Absolute Lymphs (auto) 0.9 L 10^3/uL
(1.2-3.4)
Lymphocytes % 18.0 L %
(20.5-51.1)
Glucose 102 H mg/dl
(70-99)
Magnesium 2.5 H mg/dl
(1.6-2.3)
Ammonia < 9 L umol/L
(9-30)
Salicylates < 1.0 L mg/dl
(2.0-20.0)
Acetaminophen < 10 L ug/ml
(10-30)
Alcohol, Quantitative 447 H* mg/dl
01/24/25 19:58
01/24/25 19:58
Vital Signs
Initial and Last Documented VS:
Initial Vital Signs
Temp Pulse Resp BP Pulse Ox
97.8 F 88 22 101/65 94
01/24/25 19:43 01/24/25 19:43 01/24/25 19:43 01/24/25 19:43 01/24/25 19:43
Last Documented Vital Signs
Temp Pulse Resp BP Pulse Ox
97.5 F 108 22 133/100 99
01/25/25 07:17 01/25/25 09:30 01/25/25 09:30 01/25/25 09:30 01/25/25 09:30
<Tara Chavarria PA-C - Last Filed: 01/25/25 11:16>
MDM/Problems Addressed
Differential Diagnosis Includes:
Not limited to: Acute alcohol intoxication, electrolyte abnormality, alcohol withdrawal, etc.
MDM/Problems Addressed:
19-year-old presenting with severe alcohol intoxication. History of alcohol abuse with severe withdrawal in past. History taking and exam extremely limited given patients level of intoxication currently. However, parents believe that he had at least
1 L of vodka today. They also report he has seemed generally confused this week with intermittent passive SI. No known trauma.
Patient has stable vital signs on arrival. On exam, patient is somnolent although responds to painful stimuli. No evidence of trauma
Basic labs and electrolytes reveal no acute abnormalities. Liver function normal. Alcohol level of 447. A CT scan was obtained given parents reported confusion with very unclear history without evidence of acute abnormalities.
Patient was given 2 L IV fluids, as well as thiamine and folic acid in emergency department.
Given severe alcohol intoxication with history of severe withdrawal � will admit patient for further management. Possible rehab placement at discharge. May also need psych eval.
Patient accepted to hospitalist service for continued management.
Chronic conditions affecting care:
Alcohol abuse
Acute Exacerbation and/or Progression of Chronic Illness:
Acute severe alcohol intoxication
<Tara Chavarria PA-C - Last Filed: 01/25/25 11:16>
*Radiology
Radiology exam reviewed: radiology read reviewed
*Pulse Oximetry
SaO2: 95
Oxygen Mode of Delivery: Room air
Patient hypoxic: no
*EKG
Interpreted by ED Provider?: NA
*Location Man Interpretation
Rate: normal
Interpretation: normal
Heart Rate: 86
Rhythm: sinus
*Critical Care Note
Total Time (30-74mins, 75-104mins- exclusive of procedures): Not Applicable
Data Reviewed
Review of Other/Old Records Reveals: Discharge Summary (Discharge summary from 06/28/2024 after admission for severe alcohol withdrawal requiring ICU level care)
<Tara Chavarria PA-C - Last Filed: 01/25/25 11:16>
Patient Management
Discussion with other providers: Hospitalist
Escalation/DeEscalation of care consider admission/obs:
Admit given severe alcohol intoxication impending withdrawal
ED Attending Note
<Tara Chavarria PA-C - Last Filed: 01/25/25 11:16>
-
Portions of this chart may have been created with voice recognition software.� Occasional wrong word or��sound alike� substitutions may have occurred due to the inherent limitations of voice recognition software.
<Lillian Chavez DO - Last Filed: 01/24/25 22:19>
ED Attending Note
Patient seen and examined by attending physician: Yes
I performed the substantive portion of visit, reviewed & personally made and approve the management plan that is documented in note by myself or GIAN.: Yes
I performed a history and physical exam of patient and discussed management with resident, I reviewed resident's note and agree with documented findings and plan of care.: Yes
ED Attending Note:
19-year-old male brought to the ER by family for evaluation of severe alcohol intoxication. Patient has been to rehab before. He drank more than a liter of vodka today. He has been making threats to harm himself throughout the week. Parents are
seeking placement for the patient. He also has a prior history of alcohol withdrawal symptoms requiring ICU admission to this hospital in the past. Vital signs reviewed, patient is awake, alert, slurred speech, able to follow commands but sluggish
to participate, GCS is 15, positive alcohol on breath. I reviewed all test results with physician entry level assistant manager. I spoke with the parents with regards to plan for admission given severe level of intoxication and prior history of severe alcohol
withdrawal requiring ICU admission. They agree with plan. They also reports that they have a support in place, mom is currently involved in therapy, dad is also considering seeking additional outpatient support. Physician entry level assistant manager was able to
speak with hospitalist who accepts patient for admission.
Discharge Plan
Departure
Patient Disposition: Admit
Date of Disposition: 01/24/25
Time of Disposition: 21:46
Presentation/result/management discussed w/ accepting MD/DO: Hospitalist
Discharge Problem:
Alcohol abuse
Interventions
Interventions:
*Risk Screen - Suicide Last Done: 01/24/25 19:43
*General Assessment Last Done: 01/24/25 19:43
*Neglect/Abuse Screening Last Done: 01/24/25 19:43
*ED- Fall Risk Assessment Last Done: 01/24/25 19:43
*ED COVID-19 Vaccine History Last Done: 01/24/25 19:43
*ED Influenza Vaccine History Last Done: 01/24/25 19:43
*Nursing Disposition Last Done: 01/25/25 04:10
ED- Neurological Assessment Last Done: 01/24/25 21:00
ED-Psychological Assessment Last Done: 01/24/25 21:00
Discharge Date and Time
Discharge Date/Time: 01/25/25 04:14
[2025-01-24] MEDS: THIAMINE INJECTION 100 MG IV (21:39)
[2025-01-24 21:51] LABS: Ammonia < 9 umol/L (9-30)
[2025-01-24] MEDS: FOLVITE 50.2 MG IV (21:53)
--- NOTE | 2025-01-24 22:09 | EDRN ---
Patient awake and trying to get out of bed, states he needs to urinate, helped patient with urinal, he is thrashing around the bed, sitting up then laying down, redirected with verbal cues, patient was able to get the CT of his head done, at this
time waiting on admissions
--- NOTE | 2025-01-24 22:36 | HPS.HSE ---
Family Physician
-
Family Physician: NOT KNOW UNKNOWN - PT DOES
Chief Complaint
-
Intoxication, Agitation
History of Present Illness
Patient is a 19y M with PMH significant for alcohol use disorder who presents to ED for evaluation of intoxication and agitation this evening. Majority of history obtained from family at the bedside. Patient with history of alcohol use
disorder. He was hospitalized here for withdrawal symptoms in June and discharged to inpatient rehab facility. Family states that he returned to drinking shortly after his discharge from rehab. His intake has increased recently - though they are
not certain of how much he currently drinks. Patient himself states anywhere from 3-7 drinks daily.
This evening patient was grossly intoxicated and agitated / combative at home prompting presentation to the ED for evaluation.
Family states that he has been more confused over the past week or so. He has made off-handed statements hinting at self-harm, but then dismisses them as 'jokes' when asked directly. No prior known suicide attempts.
He has current prescriptions for doxepin and hydroxyzine, but family is not sure if / how much he takes these.
No other chronic medications or known health issues.
In the ED, patient is awake and interactive, but obviously intoxicated with rambling, tangential, nonsensical speech.
Medical History
Past Medical History
Past Medical History: Reports Other
Additional Past Medical History:
Alcohol Use Disorder
Anxiety / Depression
Past Surgical History: Reports None
Social History
Tobacco: Vaping (daily)
Alcohol: Daily (3-7 drinks every day - mostly vodka drinks.)
Drug: Marijuana (daily)
Family History
Family History: Not pertinent
Allergies / Home Medications
Allergies reflects when Allergies were last updated in [facility].
Home Medications with original date entered in [facility]
Allergy/Medication List:
Allergies
Allergy/AdvReac Type Severity Reaction Status Date / Time
No Known Allergies Allergy Verified 12/15/24 02:56
Home Medications
doxepin 50 mg capsule 50 mg PO HS 12/15/24
hydroxyzine pamoate 50 mg capsule 50 mg PO BID PRN anxiety 12/15/24
Review of Systems
-
History Source: Patient and Family
A 12 point ROS was completed and negative except as noted: Yes
Respiratory: Denies Cough or Trouble Breathing
Cardiac: Denies Chest Pain or Palpitations
Abdomen/GI: Denies Abdominal Pain, Nausea, Vomiting or Diarrhea
Psych: Reports Depression, Suicidal and Other (Confused)
Physical Exam
Vital Signs
Vital Signs
Temp Pulse Resp BP Pulse Ox
97.8 F 93 20 98/47 95
01/24/25 19:43 01/24/25 21:47 01/24/25 21:47 01/24/25 21:00 01/24/25 21:40
Physical Exam
General: Other (19y M with outward signs of intoxication including ataxia, pressure / tangential speech, etc.)
HEENT: Moist mucous membranes
Respiratory: Clear; No Wheezes, Rales or Rhonchi
Cardiac: S1/S2 and Regular Rhythm; No Murmur
GI: Soft, Non Tender, Non Distended and Normal Bowel Sounds
Musculoskeletal: No Clubbing, No Cyanosis and No Edema
Neuro: Awake
Laboratory Results
-
01/24/25 19:58
01/24/25 19:58
Laboratory Results
Total Bilirubin 0.4 mg/dl (0.2-1.3) 01/24/25 19:58
AST 33 U/L (17-59) 01/24/25 19:58
ALT 26 U/L (0-50) 01/24/25 19:58
Alkaline Phosphatase 74 U/L (38-126) 01/24/25 19:58
Impression/Plan
-
A/P: Patient is a 19y M with PMH significant for for alcohol use disorder who presents to ED for evaluation of intoxication and agitation.
Alcohol Use Disorder
Acute Intoxication
Impending Alcohol Withdrawal
- Admit to IMU for further evaluation and treatment.
- Patient required Precedex infusion after 24 hours during his last hospital stay.
- Begin phenobarb taper now.
- Follow MSAS and cover with Ativan or similar as needed for breakthrough symptoms.
- Supportive care including IVFs. Follow lytes and replace as needed.
- Alcohol level = 447 on initial labs.
- Consider inpatient rehab at discharge if patient is agreeable.
Suicidal Ideation
Anxiety / Depression
- Family reports concerning recent statements of self-harm, etc.
- No known prior attempts and no concrete statements, formulated plan, etc.
- 1:1 observation for now.
- Formal Psych evaluation.
DVT Prophylaxis: SCDs
Code Status: Full
[2025-01-24] MEDS: VALIUM INJECTION 5 MG IV (22:46)
[2025-01-24 22:48] VITALS: BP 112/80
[2025-01-24 23:00] VITALS: BP 102/60
[2025-01-24 23:27] LABS: Urine Character Clear (Clear)
--- NOTE | 2025-01-24 23:55 | EDRN ---
Patient is sleeping at this time, VSS, parents at bedside with him, will continue to monitor
[2025-01-25] VITALS (63 sets, daily range): BP systolic 101–172; BP diastolic 60–134; BMI 20.5
[2025-01-25] MEDS: PHENOBARBITAL 104 MG IV (02:21)
[2025-01-25] MEDS: LR 1000 IV (02:21)
--- NOTE | 2025-01-25 02:32 | EDRN ---
Patient remains asleep at this time, VSS
[2025-01-25 03:49] LABS: Hematocrit 37.3 % (39.0-52.0); Hemoglobin 12.8 g/dL (13.0-18.0); Mean Corp Hgb Conc. 34.3 g/dL (33.0-37.0); Mean Corpuscular Volume 80.6 fL (80.0-94.0); Platelet Count 237 10^3/uL (130-400); Red Cell Dist. Width 13.2 % (11.5-14.5)
[2025-01-25 04:13] LABS: ALT (SGPT) 24 U/L (0-50); AST (SGOT) 34 U/L (17-59); Albumin 4.2 g/dl (3.5-5.0); Alkaline Phosphatase 57 U/L (38-126); Blood Urea Nitrogen 9 mg/dl (9-20); Calcium 8.4 mg/dl (8.4-10.2); Carbon Dioxide 25 mmol/L (22-30); Chloride 113 mmol/L (98-107); Estimated Creatinine Clearance > 125 ml/min; Glucose 87 mg/dl (70-99); Potassium 4.5 mmol/L (3.5-5.1); Sodium 143 mmol/L (135-145); Total Protein 6.7 g/dl (6.3-8.2); eGFR > 60.00
[2025-01-25 04:17] LABS: INR 1.00; PT 13.3 Sec (11.4-14.6)
[2025-01-25 04:18] LABS: APTT 25.7 Sec (23.4-35.0)
--- NOTE | 2025-01-25 04:40 | PTCARENOTE ---
Received patient from the ED around 0400. 1:[address] Patient cooperative with care. MSAS of 4. NSR on the monitor. IVF infusing.
[2025-01-25] MEDS: ATIVAN 1 MG PO ×4 (06:49→19:42)
[2025-01-25] MEDS: FOLVITE 1 MG PO (08:06)
[2025-01-25] MEDS: PROTONIX IV 40 MG IV (08:06)
[2025-01-25] MEDS: PHENOBARBITAL 97.5 MG IV ×3 (08:06→22:21)
[2025-01-25] MEDS: NSS (PRESERVATIVE FREE) 10 ML IV (08:06)
[2025-01-25] MEDS: THIAMINE INJECTION 200 MG IV ×3 (08:07→23:20)
[2025-01-25] MEDS: LR IV (11:03)
[2025-01-25] MEDS: NICODERM TRANSDERMAL 21 MG TRANSDERM (11:56)
--- NOTE | 2025-01-25 12:44 | CM ---
Addendum entered by Saroj Ramírez 01/25/25 18:13:
Per Psychiatry recommendation, 302 completed and filed.
Original Note:
Patient agitated. Initial assessment completed with mother. Patient lives with his parents and 19 y/o sister in a 2 story plus basement home with B/B on , 2 steps to enter. [employer] patient was independent in ADL's and ambulation, drives. Was
scheduled to start working for [employer] on this date 01/25/25. Has been unemployed. No DME. No in-home services. No HC-POA. No VA benefits. No psychiatric hospitalizations. Admission to on 06/22/24 to
06/28/24. At discharge was admitted to [facility] for 30 days and then transitioned to partial hospitalization at [facility] for 30 days. Patient has been receiving Zoom therapy sessions weekly for the past 5-6 weeks. PCP is [facility].
Pharmacy is [facility] on [facility] in [place]. Discharge POC: TBD. Psychiatry following. [facility] notified.
--- NOTE | 2025-01-25 13:02 | CS.PSYCHR ---
Consult Summary - Psychiatry
-
pt seen by me in consultation today for assessment of demands to leave AMA
19 yo man admitted last night after being brought to hospital by parents due to incoherence. Has had longstanding problem with alcohol use disorder, worsened over past week, has argued with parents about it, was hiding vodka in water bottles in his
room. Alcohol 447 on admission.
Pt states he is not going to rehab, it doesn't help, he needs to be at the first day of a new job today. Yelling and pounding fists. Currently on alcohol withdrawal protocol.
Had been hospitalized here in June in acute alcohol withdrawal required ICU stay with precedex drip. following that went to [place] detox for a month, then [place] residential/[facility], then home. Did not mind the detox, detested the
residential/[facility]. Began drinking again after 73 days of sobriety. Has been seeing outpatient therapist over past 5 weeks since last ED visit for hallucinations.
Has had outpatient psychiatric care off and on since middle school, was tried on low dose adderal, as well as wellbutrin and 75 mg max of lamictal. Could not tolerate wellbutrin or adderal (just 5 mg).
Lives with parents, had worked at [employer] until November when apssed over for promotion.
Has GF who attends [employer].
Had done poorly in , attended one semester at [employer], now trying [employer] but had to withdraw from two classes.
Very negative outlook on his life, denies current suicidality but acknowledges sometimes thinking about turning wheel of his car to deliberately crash.
+ family history of suicide father's brother at age 40
Pt denies other health problems
Acknowedges THC use (has a card, for his insomnia)
complains of insomnia, lack of alannah in his life, constant concern about not amounting to anything
Has sister currently at [facility], went back there yesterday. Both parents [employer] grads, mother transactional attorney who decided she prefers teaching special needs children, father in IT 'workaholic'. Admires them both.
Has some friends, resents that they are able to go out drinking and he can't, has a hard time committing to sobriety due to the loss of social outlets.
Drinks mainly vodka, at home and while out
Does not drink and drive, had recent episode at [facility] where nearly arrested for DUI but had walked there ([address] out [address].)
On exam pt is in bed in ICU hooked up to monitors. Initially very angry, demanding to be allowed to leave. Able to have 1 hr+ discussion with him about what is wrong with him, tearful at times. Acknowledges serious depression but sees no way out of
it. No cognitive impairment, no signs of psychosis, but depression limits ability to make decisions in own best interest.
Impression: major depression severe recurrent, alcohol use disorder severe
Rec: Pt lacks capacity to leave AMA at this time. Will be working with him and family concerning next steps, whether inpatient rehab or psychiatric unit (he currently prefers latter) Finding appropriate place for him will be challenging, might do
best in young adult unit. Likely will sign 201, but would pursue 302 if he wants to leave once medically cleared.
--- NOTE | 2025-01-25 13:55 | W.PN.HOSP.TC ---
Addendum entered and electronically signed by Sheldon Vang MD 01/25/25 19:01:
per d/w with Psych 302 filed.
Addendum entered and electronically signed by Sheldon Vang MD 01/25/25 15:38:
d/w with Psychiatry if patient needs 201/302 it will be per psychiatry.
Original Note:
Today's Communication/Plan
-
Cont 1:1
Phenobarb
can stop IVF
Psych recs
Assessment / Plan
Assessment / Plan
General: mildly agitated (prefers to go home soon)
HEENT: Moist mucous membranes
Respiratory: Clear; No Wheezes, Rales or Rhonchi
Cardiac: S1/S2 and Regular Rhythm; No Murmur
GI: Soft, Non Tender, Non Distended and Normal Bowel Sounds
Musculoskeletal: No Clubbing, No Cyanosis and No Edema
Neuro: Awake, Alert x 3, non focal grossly intact
A/P: Patient is a 19y M with PMH significant for for alcohol use disorder who presents to ED for evaluation of intoxication and agitation.
Alcohol Use Disorder recurrent
Acute Intoxication
Acute alcohol withdrawal
- On phenobarb taper now. seems to be helping.
- Follow MSAS and cover with Ativan or similar as needed for breakthrough symptoms.
- Follow lytes and replace as needed.
- Alcohol level = 447 on initial labs. Status post aggressive IV fluids. Check mag and Phos in the morning. Monitor po tolerance.
Suicidal Ideation
Major depression severe recurrent
- Family reports concerning recent statements of self-harm, etc.
- No known prior attempts and no concrete statements, formulated plan, etc.
- Continue 1:1 observation for now.
- Psych evaluated the patient. Recommended patient needs to be continuously monitored. By psychiatry patient lacks capacity to leave AMA at this point.
- Psych correspondence noted
DVT Prophylaxis: SCDs
Code Status: Full
Discussed with patient mother at bedside in detail
Anticipated Discharge: > 48 hours
Subjective/Interval History
-
Date of Service: January 25, 2025
was able to eat little bit earlier today
Denies any auditory hallucination. No tremors noted
Did talk to psychiatry earlier today
Objective Data
-
Labs:
Laboratory Results
01/25/25
03:38
WBC 4.3 L
Hgb 12.8 L
Hct 37.3 L
Plt Count 237
PT 13.3
INR 1.00
APTT 25.7
Sodium 143
Potassium 4.5
Chloride 113 H
Carbon Dioxide 25
BUN 9
Creatinine 0.7
Glucose 87
Calcium 8.4
Total Bilirubin 0.3
AST 34
ALT 24
Alkaline Phosphatase 57
Vital Signs:
Vital Signs
Temp Pulse Resp BP Pulse Ox
98.3 F 108 22 133/100 99
01/25/25 12:00 01/25/25 09:30 01/25/25 09:30 01/25/25 09:30 01/25/25 09:30
I&O
01/24/25 01/25/25 01/26/25
06:59 06:59 06:59
Intake Total 600 / 600
Output Total 900 / 900 1300 / 1300
Balance -300 / -300 -1300 / -1300
Data Reviewed
-
Total Time Spent with Patient (in minutes): 55
--- NOTE | 2025-01-25 14:09 | PTCARENOTE ---
Received pt @ change of shift. Assessment per charting- see flow sheet. MSAS per protocol and medicated per orders- see MAR. 1:1 remains @ bedside. Psych MD to see pt. this AM. Pt. not to be 302'd but pt. deemed incompetent to make decisions
for self; clarified by Dr. Sage. Pt. currently calm and cooperative. Safe environment maintained.
--- NOTE | 2025-01-25 17:43 | CM ---
302 paperwork completed by 2 MDs.
Bill of rights read to patient and he voiced understanding.
Spoke with patients parents, they would like to speak with MD again.
TC to the delegate (after hours, call placed through the [employer] radio sttz-[phone]).
TC back from on-call delegate Brenda Taylor, 302 paperwork faxed to [phone], await TCB.
TCCarmen and Babak given 01/25/25 at 6:02 pm.
Original 302 placed on ICU chart.
--- NOTE | 2025-01-25 18:30 | PTCARENOTE ---
Dr. Sage and Dr. Vang to bedside this evening. 302 paperwork completed by MD/GUMARO and placed on chart. MSAS protocol and 1:1 maintained- see flow sheets.
--- NOTE | 2025-01-25 19:13 | PTCARENOTE ---
Pt received start of shift, HR SR. Pt AAOx3. MSAS as documented in worklist. Standby assist to bathroom. 1:1 remains at bedside. Safe environment maintained.
[2025-01-26] VITALS (11 sets, daily range): BP systolic 103–143; BP diastolic 71–96
[2025-01-26] MEDS: ATIVAN 1 MG PO ×3 (02:37→21:51)
[2025-01-26 05:41] LABS: ALT (SGPT) 25 U/L (0-50); AST (SGOT) 30 U/L (17-59); Albumin 5.0 g/dl (3.5-5.0); Alkaline Phosphatase 86 U/L (38-126); Blood Urea Nitrogen 13 mg/dl (9-20); Calcium 10.0 mg/dl (8.4-10.2); Carbon Dioxide 28 mmol/L (22-30); Chloride 97 mmol/L (98-107); Estimated Creatinine Clearance 119 ml/min; Glucose 77 mg/dl (70-99); Magnesium 1.8 mg/dl (1.6-2.3); Potassium 4.0 mmol/L (3.5-5.1); Sodium 133 mmol/L (135-145); Total Protein 7.7 g/dl (6.3-8.2); eGFR > 60.00
--- NOTE | 2025-01-26 06:11 | PTCARENOTE ---
PRN ativan PO based on MSAS through the night - see MAR and worklist item. Pt cooperative, pleasant demeanor. Slept through most of the night. 1:1. Safe environment maintained
[2025-01-26] MEDS: PROTONIX IV 40 MG IV (08:05)
[2025-01-26] MEDS: NSS (PRESERVATIVE FREE) 10 ML IV (08:05)
[2025-01-26] MEDS: PHENOBARBITAL 97.5 MG IV ×3 (08:06→21:41)
[2025-01-26] MEDS: THIAMINE INJECTION 200 MG IV ×3 (08:08→23:43)
[2025-01-26] MEDS: FOLVITE 1 MG PO (08:19)
[2025-01-26] MEDS: NICODERM TRANSDERMAL 21 MG TRANSDERM (08:19)
--- NOTE | 2025-01-26 10:43 | PTCARENOTE ---
0945: Mother, Bushra, at bedside speaking with Dr. Sage.
Patient became agitated with mother. Yelled 'I don't need help. I'm not going into a psych [facility] so they can strap me down'.
Patient's mother was asked to not speak with patient about psych facilities at this time as pt becomes angry and is in denial.
--- NOTE | 2025-01-26 12:38 | W.PN.HOSP.TC ---
Today's Communication/Plan
-
cont phenobarb protocol
Psych recs
Cont 1:1
Assessment / Plan
Assessment / Plan
General: mildly agitated (prefers to go home)
HEENT: Moist mucous membranes
Respiratory: Clear; No Wheezes, Rales or Rhonchi
Cardiac: S1/S2 and Regular Rhythm; No Murmur
GI: Soft, Non Tender, Non Distended and Normal Bowel Sounds
Musculoskeletal: No Clubbing, No Cyanosis and No Edema
Neuro: Awake, Alert x 3, non focal grossly intact, mild tremors noted
Psych-got agitated during conversation for psych facility placement
A/P: Patient is a 19y M with PMH significant for for alcohol use disorder who presents to ED for evaluation of intoxication and agitation.
Alcohol Use Disorder recurrent
Acute Intoxication
Acute alcohol withdrawal
- On phenobarb taper now. seems to be helping.
- Follow MSAS and cover with Ativan or similar as needed for breakthrough symptoms.
- Follow lytes and replace as needed.
- Alcohol level = 447 on initial labs. Status post aggressive IV fluids. Medically patient seems to be doing better. And can start looking for psych facilities.
- UDS on admission noted to be positive for THC. TCA.
Suicidal Ideation
Major depression severe recurrent
- Family reports concerning recent statements of self-harm, etc.
- No known prior attempts and no concrete statements, formulated plan, etc.
- Continue 1:1 observation for now.
- Psych evaluated the patient. Recommended patient needs to be continuously monitored. By psychiatry patient lacks capacity to leave AMA at this point. 302 filed in case if needed and on chart.
- Psych following
Mild hyponatremia
-monitor for now
DVT Prophylaxis: SCDs
Code Status: Full
Discussed with patient mother at bedside in detail
Dispo-CM/Bcares to look for facility post medical stabilization
Anticipated Discharge: 24 - 48 hours
Subjective/Interval History
-
Date of Service: January 26, 2025
states feeling cold last night/this morning
[facility]
Objective Data
-
Labs:
Laboratory Results
01/26/25
04:58
Sodium 133 L D
Potassium 4.0
Chloride 97 L
Carbon Dioxide 28
BUN 13
Creatinine 0.8
Glucose 77
Calcium 10.0 D
Total Bilirubin 0.9
AST 30
ALT 25
Alkaline Phosphatase 86
Vital Signs:
Vital Signs
Temp Pulse Resp BP Pulse Ox
97.6 F 107 24 103/90 97
01/26/25 07:20 01/26/25 10:00 01/26/25 10:00 01/26/25 10:00 01/26/25 10:00
I&O
01/25/25 01/26/25 01/27/25
06:59 06:59 06:59
Intake Total 600 / 600 100 / 100
Output Total 900 / 900 1300 / 1300
Balance -300 / -300 -1200 / -1200
--- NOTE | 2025-01-26 15:29 | PTCARENOTE ---
Patient transferred into room 3366 via bed, all belongings brought with patient. Mother at bedside.
--- NOTE | 2025-01-26 16:01 | W.PN.UPDATE ---
Update Note
Progress Note Update
pt seen this am, considering inpatient options. has 'non-negotiable demands' such as access to phone (wall phone in most units) and smoking (not available anywhere in [place].) He will discuss with mother and other friends. I have encouraged him to use
mental health system at this point, or dual diagnosis rather than just substance use disorder care, but he is not sure. Remains at high risk of suicide by self-neglect if not in treatment.
--- NOTE | 2025-01-26 16:31 | CM ---
F/U: GUMARO Gordon is aware that patient is on a 302 right now for 3 days. GUMARO spoke to [facility] who does not set up Inpatient Psych. CM spoke to the [facility] in [facility], reviewed the case, they are reviewing the clinical.
Patient met with Dr. Sage, patient was recommended [facility] and 2 other programs, 1 being Secretary. CM spoke with Mom who shared that the patient did not have good experience at another facility, was locked down for 30 days, no phone, only 2x a
week, and felt out of place due to age difference. Mom is very interested in [facility] so met with the patient, dad arrived, and spoke about the [facility] program that would be for him focusing on mental health than substance abuse at the [facility]
location. Patient is thinking about it, seems interested after he read the brochure. Now waiting on [facility] to call back. PLAN: TBD, Inpatient Psych.
--- NOTE | 2025-01-26 16:59 | PTCARENOTE ---
Right wrist PIV noted to have redness following vein cord, non tender. VAT at bedside to assess.
IV removed, VAT placed new PIV in left hand. Warm compress applied to right old PIV site.
--- NOTE | 2025-01-26 17:12 | PTCARENOTE ---
Patient less agitated this afternoon after he napped. MSAS 2-5 today. Received PO Ativan x1. Parents visited and at bedside majority of the day. Able to speak with Dr. Vang and Dr. Sage. NSR/ST on telemetry. RA, Sp02 WNL. Up ad catherine to BR; gait
slightly unsteady. Poor po intake. After speaking with Dr. Sage and CM, patient more open to the idea of voluntary inpatient psych. CM working on placement. 1:1 sitter at bedside for safety.
--- NOTE | 2025-01-26 19:53 | PTCARENOTE ---
Addendum entered by Leanne Leung RN 01/26/25 20:22:
HR elevated to 140's when ambulating assist x1 to bathroom for pm hygiene, decreased back to 90's post ambulation. Patient denies symptoms. Right inner wrist noted with pink line following vein cord. Patient denies pain at rest, tender to touch.
Will continue to monitor patient closely.
Original Note:
Patient remains 1:1 observation for safety. Patient aao x3 at start of shift, mother at bedside. Patient able to make needs known, denies pain. NSR on the monitor, ST noted at times, positive pulses, no edema noted. Lungs cta throughout, pox 97% on
ra. BS hypo x4, denies nausea at this time. Continent of urine. Skin intact. Left hand INT intact and patent. MSAS continues. Call heath within reach, will continue to monitor patient closely.
--- NOTE | 2025-01-26 21:55 | PTCARENOTE ---
Patient with increased restlessness and tremors noted. PRN Ativan administered for MSAS of 5. Patient affect remains pleasant. Will continue to monitor.
[2025-01-27] VITALS (10 sets, daily range): BP systolic 113–132; BP diastolic 72–95
[2025-01-27] MEDS: MELATONIN 5 MG PO (00:31)
[2025-01-27 06:23] LABS: ALT (SGPT) 19 U/L (0-50); AST (SGOT) 25 U/L (17-59); Albumin 4.2 g/dl (3.5-5.0); Alkaline Phosphatase 81 U/L (38-126); Blood Urea Nitrogen 11 mg/dl (9-20); Calcium 9.4 mg/dl (8.4-10.2); Carbon Dioxide 27 mmol/L (22-30); Chloride 99 mmol/L (98-107); Estimated Creatinine Clearance > 125 ml/min; Glucose 91 mg/dl (70-99); Magnesium 2.0 mg/dl (1.6-2.3); Potassium 3.5 mmol/L (3.5-5.1); Sodium 129 mmol/L (135-145); Total Protein 6.6 g/dl (6.3-8.2); eGFR > 60.00
[2025-01-27] MEDS: NSS (PRESERVATIVE FREE) 10 ML IV (09:06)
[2025-01-27] MEDS: PROTONIX IV 40 MG IV (09:06)
[2025-01-27] MEDS: NICODERM TRANSDERMAL 21 MG TRANSDERM (09:06)
[2025-01-27] MEDS: THIAMINE INJECTION 200 MG IV (09:07)
[2025-01-27] MEDS: LUMINAL 64.8 MG PO ×2 (09:07→15:45)
[2025-01-27] MEDS: FOLVITE 1 MG PO (09:07)
--- NOTE | 2025-01-27 11:05 | PTCARENOTE ---
MSAS 0-2. Pleasant and cooperative. Mother at bedside. 1:1 at bedside for SI. Patient denies any SI at this time. NSR/ ST on telemetry. Up ad catherine. Appetite improving. Denies pain. Patient downgraded to telemetry. Pt updated. CM to f/u with discharge
planning.
[2025-01-27] MEDS: SENNA SYRUP 8.8 MG PO (11:54)
[2025-01-27] MEDS: MIRALAX 17 GRAMS PO (11:54)
--- NOTE | 2025-01-27 12:03 | PTCARENOTE ---
Addendum entered by Juan Bruno RN 01/27/25 12:23:
Patient transferred to room 322 on telemetry with 1:1 and transport via WC. All belongings with patient. Pt thankful for care.
Original Note:
Report called to TED Joel on 3W.
--- NOTE | 2025-01-27 12:31 | W.PN.HOSP.TC ---
Today's Communication/Plan
-
Normal saline 500 cc x 1
Await placement to behavioral unit
Continue with phenobarb protocol
Assessment / Plan
Assessment / Plan
General: calm-talking to sitter at bedside
HEENT: Moist mucous membranes
Respiratory: Clear; No Wheezes, Rales or Rhonchi
Cardiac: S1/S2 and Regular Rhythm; No Murmur
GI: Soft, Non Tender, Non Distended and Normal Bowel Sounds
Musculoskeletal: No Clubbing, No Cyanosis and No Edema
Neuro: Awake, Alert x 3, non focal grossly intact, mild tremors noted
Psych-calm this morning
A/P: Patient is a 19y M with PMH significant for for alcohol use disorder who presents to ED for evaluation of intoxication and agitation.
Alcohol Use Disorder recurrent
Acute Intoxication
Acute alcohol withdrawal
- On phenobarb taper now. seems to be helping.
- Follow MSAS and cover with Ativan or similar as needed for breakthrough symptoms.
- Follow lytes and replace as needed.
- Alcohol level = 447 on initial labs. Status post aggressive IV fluids.
- UDS on admission noted to be positive for THC. TCA.
Suicidal Ideation
Major depression severe recurrent
- Family reports concerning recent statements of self-harm, etc.
- No known prior attempts and no concrete statements, formulated plan, etc.
- Continue 1:1 observation for now.
- Psych evaluated the patient. Recommended patient needs to be continuously monitored. Patient has voluntarily decided to go to behavioral health unit.
- Psych following
Mild hyponatremia
-monitor for now
- Urine lites and serum awesome normal
-due Decreased water intake? Will give normal saline IV fluids.
DVT Prophylaxis: SCDs
Code Status: Full
Discussed with patient mother at bedside in detail
Patient has been downgraded to telemetry level of care. Medically stable for discharge to behavioral health unit.
Anticipated Discharge: Today
Subjective/Interval History
-
Date of Service: January 27, 2025
in better spirits today
no tremors
had agreed to voluntarily go to [facility]
States not drinking much water
Objective Data
-
Labs:
Laboratory Results
01/27/25
05:42
Sodium 129 L
Potassium 3.5
Chloride 99
Carbon Dioxide 27
BUN 11
Creatinine 0.7
Glucose 91
Calcium 9.4
Total Bilirubin 0.8
AST 25
ALT 19
Alkaline Phosphatase 81
Vital Signs:
Vital Signs
Temp Pulse Resp BP Pulse Ox
98 F 101 12 124/91 98
01/27/25 11:19 01/27/25 12:00 01/27/25 12:00 01/27/25 12:00 01/27/25 10:02
I&O
01/26/25 01/27/25 01/28/25
06:59 06:59 06:59
Intake Total 100 / 100 480 / 480
Output Total 1300 / 1300 425 / 425
Balance -1200 / -1200 480 / 480 -425 / -425
Data Reviewed
-
Total Time Spent with Patient (in minutes): 55
--- NOTE | 2025-01-27 14:51 | W.DCSUMMARY ---
Discharge Summary
Discharge Data
Date of Admission: 01/24/25
Date of Discharge: 01/27/25
-
Pending Results: No
Hospital Course
19-year-old male past medical history of alcohol usage, anxiety who is presenting from home with acute alcohol intoxication and also making statements concerning for suicidal ideation. Patient alcohol level at admission was 447. Urinary drug
screen was positive for marijuana. Patient was admitted to medical IMU. Patient was eval by psychiatry. Patient was started on IV fluids. Patient was started on phenobarbital taper protocol. Patient was maintained on one-to-one and 302 last
filed in case patient decided to leave AGAINST MEDICAL ADVICE. Patient with improvement in anxiety. Patient was tolerating phenobarbital without any significant side effects. IV fluid was discontinued. Patient said he was eating however with
decreased water intake. Mild hyponatremia and received IV fluid resuscitation. Psych recommended patient to be transferred directly to inpatient behavioral unit which patient finally agreed and parents were in agreement too. Patient will be
transferred to [facility] behavioral unit.
Discharge Plan
-
Patient Disposition: Psych Facility
Discharge Diagnosis/Procedures: Alcohol Use Disorder recurrent
Acute alcohol Intoxication
Acute alcohol withdrawal
Suicidal Ideation
Mild hyponatremia
Diet: Regular
Activity: As tolerated
Blood Work: BMP in 5-7 days via primary doctor
Referrals:
UNKNOWN - PT DOES,NOT KNOW [Family Provider]
Prescriptions:
New
phenobarbital 32.4 mg Tablet
32.4 mg PO TID Qty: 6 0RF
Continued
doxepin 50 mg Capsule
50 mg PO HS
hydroxyzine pamoate 50 mg Capsule
50 mg PO BID PRN (Reason: anxiety)
Discharge Orders:
Discharge Patient (As Directed); Ordered 01/27/25
Ordered By: Sheldon Vang
Discharge Date and Time
Print Language: MALDIVIAN
--- NOTE | 2025-01-27 15:06 | W.PN.UPDATE ---
Update Note
Progress Note Update
patient seen chart reviewed. discussed with nursing. mother at bedside. the patient is well known to me. he provided the history preceding this admit. he had been at [facility] for thirty days following last admit here. afterward he was in an
iop/php living away from home for another thirty and then was dc to home in august. it sounds as though he did not have much followup subsequently and that while he maintained sobriety for a few weeks he gradually drifted back into old habits. he
admits he loves the way etoh makes him feel and cannot imagine life without it even though he does recognize that for him the rosa of drinking is very high and may ultimately be his life. he is quite an anxious person. was due to start at job at
[employer] this week and was not exactly filled with confidence. he has few hobbies or interests. he seems to have have written himself off in many ways. he does not sound to me like he is manic. he did not do well on wellbutrin or adderall. he has never
been on an ssri. we talked about the need for a program after in patient . he has agreed to go to [facility]. that will be very important for sobriety. he needs a plan of he will relapse. talked about AA. there are a couple of young adult AA meetings
locally and he should attend those. if he has to go a bit afield eg towards [facility] he should do it. mom and dad i presume would foot the gas bill...he tried to say he did not have the $ for it. we agreed to continue discussion tomorrow but i
learned from cm he has been accepted at [facility] for today and will be leaving. i suggested to him and mom that an ssri should be considered for anxiety and dysphoria. he is not suicidal. he seems to want to rebuild a sober life but is also despite
having been in [place]hab program [place].
[2025-01-27] MEDS: NSS 500 IV (15:15)
--- NOTE | 2025-01-27 15:48 | CM ---
Patient has been medically cleared for discharge to [facility] under 302 status. Facility requires ambulance transport. Transport has been scheduled for 6:30 pm. [facility] will obtain insurance auth for inpatient and ambulance transport.
lPatient, mother and Team notified. [facility] liaison notified of transport time.
Nurse to Nurse report #: [phone].
Packet of discharge info to be sent with patient.
== END 2025-01-27 18:40 | DRG 897 ==
LOC: 3 WEST ACU 22:43
PROVIDERS: Physician Assistant; ADMITTING PHYSICIAN Hospitalist; ATTENDING PHYSICIAN Hospitalist; EMERGENCY PHYSICIAN Emergency Medicine; OTHER PHYSICIAN Psychiatry & Neurology Psychiatry
DX: F10.239 Alcohol dependence with withdrawal, unspecified (principal); R45.851 Suicidal ideations; F33.2 Major depressive disorder, recurrent severe without psychotic features; E87.1 Hypo-osmolality and hyponatremia; F10.229 Alcohol dependence with intoxication, unspecified; F12.90 Cannabis use, unspecified, uncomplicated; F17.290 Nicotine dependence, other tobacco product, uncomplicated; F41.9 Anxiety disorder, unspecified; Y90.8 Blood alcohol level of 240 mg/100 ml or more
CPT/HCPCS: 70450; 80048; 80053; 80143; 80179; 80306; 81003; 82077; 82140; 82248; 83735; 83930; 83935; 84100; 84300; 85025; 85027; 85610; 85730; 93005; 96361; 96365; 96374; 99285